=== PATIENT | male | born 1975 | race Asian ===

== ENCOUNTER 2018-10-08 06:31 | Inpatient (IN) | payer OTHER ==
--- NOTE | 2018-10-08 07:05 | ED ---
HPI Chest Pain - HPI Summary HPI Summary: Patient here with right-sided chest pain, side pain and back pain which started late last evening. He reports he developed a subjective fever after showering and when getting into bed. Around this time at 2200 he noticed pain starting to set him here. Worse with rotational movements and deep breath. He has not tried anything for pain however reports lying flat without moving was tolerable when he was able to sleep for 5 hours. Upon waking, pain was still here and so he is here today to be evaluated. Reports a mild cough over the past couple of days but denies hemoptysis or production. Denies melany shortness of breath, simply reports pain with deep inspiration in this area. Denies chills, headache , neck pain or stiffness, URI symptoms, shortness of breath, abdominal pain, nausea, vomiting, diarrhea, external pain/swelling/weakness as well as symptoms. Also denies smoking, use of hormones, recent trauma, history of bleeding or clotting disorders, history of cancer. He did travel to [place] from 09/07-09/24. Reports a mild cough while there from poor air quality- took amoxicillin 2 x day for 1 week and seemed to get better. Unsure of strength. Also admits he's had symptoms like this in the past most recently was in July 2018. These symptoms presented after lifting something heavy. He reports with rest, this improved after day or 2. Another time this occurred was when he was in [place] and received a massage. He developed the symptoms shortly after the massage. Again, symptoms resolved with rest. Pain 1-2 out of 10 at its best and is comfortable position of lying without deep breathing. Pain goes up to an 8 out of 10 with torso movements and deep breath. No known h/o PNA, TB or PE. - History of Current Complaint Chief Complaint: EDChestWallPain Time Seen by Provider: 10/08/18 06:38 Hx Obtained From: Patient Pain Intensity: 5 - Allergy/Home Medications Allergies/Adverse Reactions: Allergies Allergy/AdvReac Type Severity Reaction Status Date / Time No Known Allergies Allergy Verified 10/08/18 06:50 Home Medications: Home Medications NK [No Home Medications Reported] 10/08/18 [History Confirmed 10/08/18] PMH/Surg Hx/FS Hx/Imm Hx Previously Healthy: Yes Endocrine/Hematology History: Denies: Hx Anticoagulant Therapy, Hx Blood Disorders, Hx Diabetes, Hx Systemic Lupus Erythematosus, Hx Thyroid Disease, Hx Anemia, Hx Unexplained Bleeding, Autoimmune Disease Cardiovascular History: Denies: Hx Aneurysm, Hx Atrial Fibrillation, Hx Congenital Heart Disease, Hx Congestive Heart Failure, Hx Coronary Artery Disease, Hx Deep Vein Thrombosis, Hx Hypercholesterolemia, Hx Hypertension, Hx Myocardial Infarction, Hx Peripheral Vascular Disease, Hx Syncope, Hx Valvular Heart Disease Respiratory History: Denies: Hx Asthma, Hx Chronic Obstructive Pulmonary Disease (COPD), Hx Pneumonia, Hx Pulmonary Embolism GI History: Denies: Hx Cirrhosis, Hx Crohn's Disease, Hx Diverticulosis, Hx Gall Bladder Disease, Hx Gastroesophageal Reflux Disease, Hx Gastrointestinal Bleed, Hx Hiatal Hernia, Hx Irritable Bowel, Hx Obstructive Bowel, Hx Ulcer History: Denies: Hx Kidney Infection, Hx Kidney Stones - Immunization History Immunizations Up to Date: Yes - except influenza Infectious Disease History: No Infectious Disease History: Denies: Hx Tuberculosis, Traveled Outside the [place] in Last 30 Days - Family History Known Family History: Positive: None - Social History Occupation: Employed Full-time - researcher (physics) Lives: With Family - , child Alcohol Use: None Hx Substance Use: No Substance Use Type: Reports: None Hx Tobacco Use: No Smoking Status (MU): Never Smoked Tobacco Review of Systems Positive: Fever - subjective last night. Negative: Fatigue Eyes: Negative ENT: Negative Positive: Chest Pain - Rt side - lower, anterior and midaxilary into posterior lower Positive: Cough - mild - no hemoptysis. Negative: Shortness Of Breath - pain w / deep breath Gastrointestinal: Negative Negative: Abdominal Pain, Vomiting, Diarrhea, Nausea Genitourinary: Negative Negative: burning, dysuria, discharge, frequency, flank pain, hematuria, incontinence, pain, urgency Musculoskeletal: Other - Rt side rib pain Skin: Negative Neurological: Negative Psychological: Normal All Other Systems Reviewed And Are Negative: Yes Physical Exam Triage Information Reviewed: Yes Vital Signs On Initial Exam: Initial Vitals Temp Pulse Resp BP Pulse Ox 98.1 F 94 18 144/90 98 10/08/18 06:33 10/08/18 06:33 10/08/18 06:33 10/08/18 06:33 10/08/18 06:33 Vital Signs Reviewed: Yes Appearance: Positive: Well-Appearing, No Pain Distress - at rest - pain w/ deep breath, Well-Nourished Skin: Positive: Warm, Skin Color Reflects Adequate Perfusion, Dry - no erythema , no ecchymosis, no lesions over affected area Head/Face: Positive: Normal Head/Face Inspection Eyes: Positive: Normal, EOMI, Conjunctiva Clear - anicteric sclera ENT: Positive: Normal ENT inspection, Hearing grossly normal, Pharynx normal - mucosa moist Neck: Positive: Supple, Nontender Respiratory/Lung Sounds: Positive: Clear to Auscultation, Breath Sounds Present , Decreased Breath Sounds - possibly on Rt posterior lower chest however pt refrains from deep breath here d/t pain. Negative: Rales, Rhonchi, Subcutaneous Emphysema, Stridor, Tracheal Deviation, Wheezes, Unable to speak in full sentences, Fatigue Cardiovascular: Positive: Normal, RRR, Pulses are Symmetrical in both Upper and Lower Extremities, S1, S2. Negative: Murmur, Rub, Leg Edema Left, Leg Edema Right - (-) Silvia's B/L Abdomen Description: Positive: Nontender, No Organomegaly, Soft Bowel Sounds: Positive: Present Musculoskeletal: Positive: Normal, Strength/ROM Intact Neurological: Positive: Normal, Sensory/Motor Intact, Alert, Oriented to Person Place, Time, CN Intact II-III Psychiatric: Positive: Normal Diagnostics - Vital Signs Vital Signs Temp Pulse Resp BP Pulse Ox 10/08/18 06:33 98.1 F 94 18 144/90 98 - Laboratory Result Diagrams: 10/08/18 07:27 10/08/18 07:27 Lab Statement: Any lab studies that have been ordered have been reviewed, and results considered in the medical decision making process. Chest Pain Course/Dx - Course Course Of Treatment: Offered pain medications however he declines taking anything that may cause drowsiness - he is comfortable to wait until tests return but will call nurse if pain worsens. ECG: NSR, 84 bpm, possible LVH, ST sloping in V2, V3 - early repolarization. No previous for comparison. CXR: Rt chest opacities - pleural effusion. Labs: CRP 67; otherwise normal lactic, WBC. D-dimer elevated (600's) prior to CXR read - CTA ordered - no PE but gives more detail about Rt plueral effusion stating partially loculated with compression atelectasis of Rt LL. Discussed w/ Dr. Blackman who will perform thoracocentesis later today. Will admit to hospital in the meantime. Spoke w/ Dr. Beyer who agrees w/ plan. Admitted at 11:00am in stable condition. - Diagnoses Provider Diagnoses: Pleural effusion, right Discharge - Sign-Out/Discharge Documenting (check all that apply): Patient Departure - Discharge Plan Condition: Stable Disposition: ADMITTED TO [facility] - Billing Disposition and Condition Condition: STABLE Disposition: Admitted to [facility]
[2018-10-08 07:40] LABS: ABS Basophils 0 10^3/ul (0-0.2); ABS Eosinophils 0.2 10^3/ul (0-0.6); ABS Monocytes 0.9 10^3/ul (0-0.8); ABS Neutrophils 7.4 10^3/ul (1.5-7.7); ABS Nucleated RBC 0 10^3/ul; Eosinophil % 1.6 % (0-6); Hematocrit 41 % (42-52); Hemoglobin 13.8 g/dl (14.0-18.0); Lymphocyte % 10.6 % (25-47); Mean Corpuscular HGB Conc 34 g/dl (31-36); Mean Corpuscular Hemoglobin 27 pg (27-31); Mean Corpuscular Volume 80 fL (80-94); Mean Platelet Volume 7.9 fL (7.4-10.4); Nucleated Red Blood Cells % 0; Platelet Count 220 10^3/ul (150-450); Red Cell Distribution Width 13 % (10.5-15); White Blood Count 9.6 10^3/ul (3.5-10.8)
[2018-10-08 07:49] LABS: INR 1.04 (0.77-1.02)
[2018-10-08] MEDS ORDERED: Iohexol 350* (CONTRAST) 500 ML MDV IV ONE (08:08)
[2018-10-08] MEDS ORDERED: Levofloxacin 750 MG IVPREMIX(* 750 MG/150 ML BAG IVPB ONE (10:26)
[2018-10-08 10:38] LABS: Urine Appearance Clear; Urine Blood 1+ (Negative); Urine Color Yellow; Urine Ketones Negative (Negative); Urine Protein Negative (Negative); Urine Red Blood Cell Trace(0-2/hpf) (Absent); Urine Specific Gravity 1.012 (1.010-1.030); Urine Urobilinogen Negative (Negative); Urine White Blood Cell Trace(0-5/hpf) (Absent)
[2018-10-08] MEDS ORDERED: Ondansetron INJ* 2 MG/ML VIAL IV PRN (11:19)
[2018-10-08] MEDS ORDERED: NS 0.9% 1000 ML* 1,000 ML IV SCH (11:30)
[2018-10-08] MEDS: Acetaminophen TAB* 325 MG PO PRN (13:06)
--- NOTE | 2018-10-08 15:52 | HP ---
AMENDED REPORT NOW INCLUDES DESIGNATED COSIGNER CC: Dr. Alejandro Mathews; Dr. Cat; Dr. Blackman * HISTORY AND PHYSICAL: DATE OF ADMISSION: 10/08/18 PRIMARY CARE PROVIDER: Dr. Alejandro Mathews. ATTENDING PHYSICIAN WHILE IN THE HOSPITAL: Magalys Batres MD * (report dictated by Jerzy Stanton NP). CONSULTING INFECTIOUS DISEASE SPECIALIST: Dr. Cat. CONSULTING HEALTH OUTCOMES LIAISON: Dr. Blackman. CHIEF COMPLAINT: 1. Chest pain. 2. Cough. 3. Fatigue. HISTORY OF PRESENT ILLNESS: Mr. Jhaveri is a 43-year-old male patient who really carries a history only of hypertension and he is just doing lifestyle modifications for that at the moment. He says that recently he has noticed 3 distinct episodes starting in the end of July where he has had right-sided chest pain associated with fatigue. The first time it happened he thought it was related to the fact that he was moving and lifting stone for a patio setup, he lay down, it went away the next day and he felt fine. Next time it happened when he was in [place] from 09/07/18 through 09/23/18. Few days while getting there, he had a 2-day episode where he was having this right-sided sharp chest pain and along the right upper quadrant. He says the pain lasted intermittently for a couple days, worse with taking a deep breath, he felt better if he lay down and he felt fatigued. He did have a cough at that point, but it was nonproductive. He says when he got back to the [facility], he felt this discomfort again and he started taking amoxicillin for a week. It helped for a little bit, but then once he stopped taking the amoxicillin, the pain came back over the last 2 to 3 days this week and he described it as a sharp pain, worse with taking a deep breath. He felt short of breath because he cannot take a deep breath and he described again the pain in the lower ribs and the upper right quadrant, worse with position and he says it was just getting worse. He felt chilled and feverish last night. He denied any significant weight changes. No night sweats. No hemoptysis. He says he has been coughing, but he is not really bringing up anything. He was concerned because the symptoms were not getting any better and he came into the ED today. There has been no history given of TB or history of sick contacts that he is aware of, but again he was in [place] recently and he does work up at [employer]. He says that his other family members have not been ill. He decided to come into the ER. He was evaluated. He was ultimately found to have a loculated pleural effusion in his right base. We were asked to evaluate for admission. PAST MEDICAL HISTORY: Significant for hypertension. PAST SURGICAL HISTORY: Denied. HOME MEDICATIONS: Include none. ALLERGIES TO MEDICATIONS: Include no known drug allergies. FAMILY HISTORY: He says his mom is healthy. Father did have a history of a stroke. SOCIAL HISTORY: He is a nonsmoker. He does not use illicit drugs. He does not drink alcohol. Surrogate decision maker is his . He works at [employer]. REVIEW OF SYSTEMS: There is no documented fever, but he did admit to chills last night. Denies any significant weight change. There is no double vision. There is no ear discharge. He denies having any rhinorrhea. There was no sore throat. No thyroid enlargement. Does admit to having pain in his chest with a deep breath, sharp stabbing on the right side and also worse with position. There was chest pain per my HPI. There was no nausea, no vomiting. No dysuria. There was no frequency. No seizure, no loss of consciousness. No pruritus and no skin ulcerations. Review of 14 systems was completed, all others negative. PHYSICAL EXAMINATION GENERAL: At this time, Mr. Jhaveri is a 43-year-old male patient. He is sitting in the ED stretcher. He does not appear to be in any acute distress. He appears to be well nourished. He appears to be well developed. VITAL SIGNS: Blood pressure 135/94 with a pulse of 93, respirations 16, O2 sat 97%, temperature 98.1. HEENT: Head: Atraumatic and normocephalic. Eyes: EOMs intact. Sclerae anicteric and not pale. Throat: Oral mucosa appears to be moist. No oropharyngeal erythema. NECK: Supple. LUNGS: He was diminished in the right base. He had equal diaphragmatic expansion. HEART: Sounds S1, S2. He had a regular rate and rhythm. No murmurs, rubs, or gallops. ABDOMEN: Soft. It was flat, nontender. Bowel sounds were present. EXTREMITIES: Pulses were 2+ throughout. He is moving all 4 extremities with 5/ 5 strength. NEUROLOGIC: He is awake. He is alert. He is oriented x3. He had no gross focal deficits. SKIN: Intact. DIAGNOSTIC STUDIES/LAB DATA: Labs today did reveal a WBC of 9.6, RBC of 5.12, hemoglobin of 13.8, hematocrit of 41, platelet count of 220. INR was 1.04, PTT of 30.8, D-dimer of 602. His sodium was 136, potassium was 3.9, chloride of 103 , bicarb 27, BUN 12, creatinine of 0.82, glucose of 112, lactic 0.7. His calcium was 9, mag 2.2. Total bili 1.4, AST 13, ALT 15, alk phos 84. Troponin 0. CRP of 67. BNP of 9. Albumin of 4.1. TSH was normal. Urine showed 1+ blood. Serology was negative for flu. He had an EKG obtained today, which shows a normal sinus rhythm, rate of 84. He does have LVH, but no ST elevation. He had inverted T-wave in lead III and normal axis. He did appear to have J-point elevation in V2 and V3. Chest x-ray obtained today. It does show pleural effusion noted with atelectasis to the right lower lobe. Radiology read this as right pleural effusion with greater right lower lung consolidation, recommend followup until resolution to exclude underlying pulmonary parenchymal pathology. CTA chest showed no pulmonary arterial filling defect to suggest PE, right pleural effusion that appears partially loculated with compressive atelectasis of the right lower lobe. Old medical records were reviewed. ASSESSMENT AND PLAN: Mr. Jhaveri is a 43-year-old male patient coming into the ER today with complaints of chest pain and now having a cough, possible chills, on evaluation was found to have a pleural effusion. He will be admitted under observation status for: 1. Pleural effusion, etiology of which is unclear. It certainly could be infectious with his recent travel that certainly broadens the differential. I do think we should get in touch with Dr. Cat. I have a call placed out to him. Holding on antibiotics at the moment as he does appear to be hemodynamically stable. I would like to good cultures. Dr. Blackman has been contacted already by the ED for a thoracentesis today, which we will send off for culture, Gram stain and we also should send for cytology when it is sent and we will await the cell count to determine initiation and continuation of antibiotics. At this point, we will send off for body fluid, LDH, protein, glucose, cell counts, and cultures. I did send blood cultures. We will try to get sputum culture. I sent Strep pneumo antigen and Legionella antigen. Flu was negative. I also will send HIV testing and I did send off an LDH as well and we will continue to follow. 2. Hypertension. Blood pressure is stable here. We will monitor. 3. DVT prophylaxis: He will be placed on SCDs. 4. Code status: Full code. 5. Fluids, electrolytes, and nutrition: He can have a regular diet. TIME SPENT: Time spent on the admission was 60 minutes, greater than half of the time was spent [id number] with the patient obtaining my history and physical, other half of the time was spent going over the plan of care with the patient and implementing plan of care. I did discuss the plan of care with my attending, Dr. Batres; she is in agreement. JERZY STANTON, GIOVANNA [id number]/[facility] #: [id number] JESSIE
--- NOTE | 2018-10-08 20:41 | CONS ---
PULMONARY CONSULTATION REPORT: DATE OF CONSULT: 10/08/18 CONSULTATION REQUESTED BY: Jerzy Stanton NP REASON FOR CONSULT: Evaluation of pleural effusion. HISTORY OF PRESENT ILLNESS: The patient is a 43-year-old male with history of hypertension, on dietary and lifestyle modifications. The patient presents to the emergency room for evaluation of chest pain. The patient reports 3 episodes of chest pain that happened on different occasions. First episode happened in July when he had sudden onset of chest pain, sharp in nature, associated with fatigue. The patient denied significant shortness of breath. The patient attributed it to strenuous activity as he was lifting patio stones. Pain resolved eventually. Second episode happened when the patient was visiting [place]. He was in [place] from 09/07/18 to 09/23/18. He has noticed 2 days of right-sided chest pain along with right upper quadrant pain, worsened with a deep breath and relieved by lying down and taking rest. He also had dry cough at that time. The patient denies fevers or chills. The patient reports that usually when he goes back to [place] he gains weight; however, at this time he did not gain weight, at the same time denies any weight loss recently. The patient returned back to [facility] without any issues. However, stopped taking the amoxicillin that was prescribed to him when he was in [place]. The patient reports that over the past 2 to 3 days he has been having the sharp pain on the right side that is worse with deep breathing. He denies cough or sputum production. Denies fevers. Reports chills for the past couple of days. Denies night sweats. Denies hemoptysis. Denies known history of tuberculosis or sick contacts with TB. No known sick contacts recently. No other family members with similar complaints. Further evaluation in the emergency room included chest x-ray and CT scan of the chest. I have personally reviewed chest x-ray and CTA of the chest. Chest x-ray showed evidence of airspace opacity on the right side with right pleural effusion with underlying consolidation. CTA of the chest was also personally reviewed by me and with the patient - the patient noted to have no evidence of filling defects in pulmonary arteries. He was noted to have partially loculated right pleural effusion with compressive atelectasis. No significant mediastinal or hilar adenopathy was noted. No obvious discrete masses were noted. Pulmonary consultation was requested for evaluation of loculated appearing pleural effusion. The patient was seen and examined at bedside. The patient is not in any distress at this time. He reports difficulty taking deep breath. He was found to have low-grade fever at 100.1 here. PAST MEDICAL HISTORY: Hypertension, being treated with lifestyle modification. PAST SURGICAL HISTORY: None. MEDICATIONS AT HOME: The patient is not on any medications. ALLERGIES: No known drug allergies. FAMILY HISTORY: History of stroke in his father. SOCIAL HISTORY: Nonsmoker. No illicit drug use or alcohol abuse. He works at [employer]. REVIEW OF SYSTEMS: All 14 systems reviewed and as per HPI. PHYSICAL EXAM: The patient is sitting up in bed, in no apparent distress. Reports discomfort with only taking deep breath. Vital Signs: Temperature 100.1, pulse 119 beats per minute, respiratory rate 25 per minute, O2 sat 96% on room air with a blood pressure of 136/79 on admission. HEENT: Pupils equal , reactive to light. Mucous membranes moist. No accessory muscle use. Lungs: Diminished air entry at right base. No wheezing. Cardiovascular: S1, S2 present, regular. Abdomen: Soft, nontender, nondistended. Bowel sounds present. Extremities: Normal range of motion. No edema. Skin: No rash. Neuro: Alert, awake. No focal deficits. DIAGNOSTIC STUDIES/LAB DATA: WBC count 9.6, hemoglobin 13.8, hematocrit 41, platelet count 220,000. Sodium 136, potassium 3.9, chloride 103, bicarb 27, BUN 12, creatinine 0.82. Lactic acid within normal limits. T bili is slightly elevated at 1.40. LDH low. CRP elevated at 67. BNP within normal limits. TSH within normal limits. Chest x-ray and CT scan of the chest as described above in HPI. Urine Legionella antigen negative. Negative Strep pneumo antigen. Influenza A and B negative. IMPRESSION AND RECOMMENDATIONS: 43-year-old male who presents with chest pain, found to have loculated right pleural effusion. The patient with subjective fever and chills for 1 to 2 days. Symptoms consistent with parapneumonic effusion/complicated pleural effusion. I have performed bedside ultrasound to evaluate the effusion further. He does have small to moderate amounts of loculated right pleural effusion with complexities. I have performed bedside ultrasound-guided thoracentesis along the right side into one of those bigger pockets and drained 450 mL of dark turbid fluid. Fluid was sent into the lab for evaluation. Significant amount of white cells along with neutrophilia was seen. Rest of the pleural fluid studies are pending. Surgery consultation was requested given loculated pleural effusion to assess need for chest tube placement. The patient started on Levaquin.Infectious Disease consultation was also requested to help assist with optimal antibiotic choice. Will await pleural fluid results. If found to have evidence of empyema, might need either drainage of isolated locules or might need chest tube placement with administration of tPA. The patient is stable, not in any distress. Thank you for allowing me to participate in the care of your patient. Will follow up with you. [id number]/[facility] #: [id number] JESSIE
--- NOTE | 2018-10-09 03:58 | PRO ---
THORACENTESIS REPORT: DATE OF PROCEDURE: 10/08/18 PROCEDURE PERFORMED: Ultrasound-guided thoracentesis on the right side. PRE-PROCEDURAL DIAGNOSIS: Loculated right pleural effusion. POST-PROCEDURAL DIAGNOSIS: Loculated right pleural effusion, concern for empyema. ANESTHESIA: Local anesthesia with 1% lidocaine. DESCRIPTION OF PROCEDURE: Informed consent was obtained from the patient prior to the procedure after all the risks and benefits were thoroughly explained. The patient admitted for evaluation of loculated right pleural effusion. Appropriate time-out was performed and agreed by attending staff. A portable ultrasound was utilized at bedside to localize loculated and complex-appearing right pleural effusion. Strict aseptic and barrier precautions were followed. The patient was sitting up and leaning forward during the procedure. CareFusion 8-Macedonian thoracentesis catheter was utilized for the procedure. Area was cleaned with chlorhexidine. 1% lidocaine was instilled subcutaneously intradermally down into the pleural space taking precautions. #11 scalpel blade was used to make stab incision. A CareFusion 8-Macedonian thoracentesis catheter was then inserted under manual suction taking precautions. Catheter was left in place and needle was removed. 450 mL of dark yellow flui, turbid appearing was removed under manual suction. No further fluid was able to be aspirated and catheter was removed. The patient tolerated the procedure well. Postprocedural chest x-ray was ordered and is pending at the time of dictation. Fluid was sent into the lab for hematological, cytological, and biochemical examination. [id number]/[facility] #: [id number] MTDD
[2018-10-09] MEDS: Acetaminophen TAB* 325 MG PO PRN ×2 (04:08→15:57)
[2018-10-09 06:03] LABS: ABS Basophils 0 10^3/ul (0-0.2); ABS Eosinophils 0.2 10^3/ul (0-0.6); ABS Neutrophils 8.5 10^3/ul (1.5-7.7); ABS Nucleated RBC 0 10^3/ul; Eosinophil % 1.5 % (0-6); Hematocrit 41 % (42-52); Hemoglobin 13.8 g/dl (14.0-18.0); Lymphocyte % 9.6 % (25-47); Mean Corpuscular HGB Conc 34 g/dl (31-36); Mean Corpuscular Hemoglobin 27 pg (27-31); Mean Corpuscular Volume 81 fL (80-94); Nucleated Red Blood Cells % 0; Platelet Count 212 10^3/ul (150-450); Red Blood Count 5.09 10^6/ul (4.00-5.40); Red Cell Distribution Width 13 % (10.5-15); White Blood Count 10.7 10^3/ul (3.5-10.8)
[2018-10-09 06:09] LABS: INR 1.13 (0.77-1.02)
[2018-10-09 06:18] LABS: EGFR Non-African American 97.5 (>60)
[2018-10-09] MEDS ORDERED: Levofloxacin 750 MG IVPREMIX(* 750 MG/150 ML BAG IVPB SCH (09:00)
--- NOTE | 2018-10-09 13:47 | PN ---
Progress Note - Progress Note Date of Service: 10/09/18 - Pul f/u note Note: Pt seen and examined. Complete note in separate progress note
--- NOTE | 2018-10-09 13:50 | PN ---
Progress Note - Progress Note Date of Service: 10/09/18 - Pulm f/u note Note: Pt seen and examined at bedside. Pt reports soreness atsite of thoracentesis yesterday. Denies significant chest pain or SOB, felt better after thoracentesis , had low grade fever. Was placed on resp isolation Active Medications Generic Name Dose Route Start Last Admin Trade Name Freq PRN Reason Stop Dose Admin Acetaminophen 650 mg 10/08/18 11:19 10/09/18 04:08 Tylenol Tab* PO 650 mg Q4H PRN Administration FEVER/PAIN Sodium Chloride 1,000 mls @ 100 mls/hr 10/08/18 11:30 10/08/18 12:50 Ns 0.9% 1000 Ml* IV 100 mls/hr PER RATE SHELLY Administration Levofloxacin/Dextrose 750 mg in 150 mls @ 100 mls/hr 10/09/18 09:00 10/09/18 10:04 Levaquin 750 Mg Ivpremix(*) IVPB 100 mls/hr Q24H SHELLY Administration Ondansetron HCl 4 mg 10/08/18 11:19 Zofran Inj* IV Q6H PRN NAUSEA Tramadol HCl 50 mg 10/08/18 20:04 Ultram* PO Q8H PRN PAIN Vital Signs Temp Pulse Resp BP Pulse Ox 98.1 F 82 16 128/77 98 10/09/18 07:12 10/09/18 07:12 10/09/18 07:12 10/09/18 07:12 10/09/18 07:12 O/E: Pt in NAD HEENT: PERRLA, no JVD Lungs: Diminished at rt base CVS: S1, S2+ Abd: Soft, BS+ Ext: No edema Neuro: No focal deficits Skin: No rash Laboratory Results - last 24 hr 10/08/18 10/09/18 10/09/18 13:00 05:43 05:43 WBC 10.7 RBC 5.09 Hgb 13.8 L Hct 41 L MCV 81 MCH 27 MCHC 34 RDW 13 Plt Count 212 MPV 8.0 Neut % (Auto) 79.0 Lymph % (Auto) 9.6 L Eaton % (Auto) 9.5 H Eos % (Auto) 1.5 Baso % (Auto) 0.4 Absolute Neuts (auto) 8.5 H Absolute Lymphs (auto) 1.0 Absolute Monos (auto) 1.0 H Absolute Eos (auto) 0.2 Absolute Basos (auto) 0 Absolute Nucleated RBC 0 Nucleated RBC % 0 INR (Anticoag Therapy) 1.13 H Sodium Potassium Chloride Carbon Dioxide Anion Gap BUN Creatinine Est GFR ( Amer) Est GFR (Non-Af Amer) BUN/Creatinine Ratio Glucose Calcium Fluid Source Pleural fluid Fluid Volume 8 Fluid Color Maria Luisa Fluid Appearance Cloudy Fluid WBC 27144 Fluid RBC 91085 Fluid Tot Cell Count 100 Fluid Neutrophils 89 Fluid Lymphocytes 7 Fluid Monocytes 3 Fluid Eosinophils 1 Fluid Other Cells 4 Fluid Cell Count Rvw By 10/09/18 05:43 WBC RBC Hgb Hct MCV MCH MCHC RDW Plt Count MPV Neut % (Auto) Lymph % (Auto) Eaton % (Auto) Eos % (Auto) Baso % (Auto) Absolute Neuts (auto) Absolute Lymphs (auto) Absolute Monos (auto) Absolute Eos (auto) Absolute Basos (auto) Absolute Nucleated RBC Nucleated RBC % INR (Anticoag Therapy) Sodium 136 Potassium 3.7 Chloride 106 Carbon Dioxide 25 Anion Gap 5 BUN 11 Creatinine 0.86 Est GFR ( Amer) 118.0 Est GFR (Non-Af Amer) 97.5 BUN/Creatinine Ratio 12.8 Glucose 118 H Calcium 8.8 Fluid Source Fluid Volume Fluid Color Fluid Appearance Fluid WBC Fluid RBC Fluid Tot Cell Count Fluid Neutrophils Fluid Lymphocytes Fluid Monocytes Fluid Eosinophils Fluid Other Cells Fluid Cell Count Rvw By I/R: 43 y o m with no significant PMH a/w chest pain that happened at 3 different times since Sep, recently travelled to [place], had sx prior to travel also with no actual wt loss, decreased appetite Pt had CTA that showed loculated effusion, underwent thoracentesis with removal of 450ccof dark, turbid fluid Pt with increased WBC count, predominantly neutrophils, rest of studies are pending including pl fluid ADA Pt was placed in resp isolation Less likely to be TB given neutrophilic predominance, would be lymphocytic in TB c/w abx Will obtain U/S to evaluate for any further loculations If noted to have loculated fluid, will need IR for drainage Surgery was consulted yesterday, not enough fluid to safely place chest tube for tPA administration D/w above with pt in detail at bedside
[2018-10-09] MEDS ORDERED: NS 0.9% 1000 ML*IV.FLUID IV ONE (15:52)
--- NOTE | 2018-10-09 16:42 | CONS ---
CONSULTATION REPORT: DATE OF CONSULT: 10/09/18 REQUESTING PROVIDER: Jerzy Stanton NP. CONSULTING SERVICE: Infectious Disease. REASON FOR CONSULT: Pleural effusion. IMPRESSION: Right-sided pleuritic chest pain off and on for a couple of days in July, then a few days in August and then again more recently and a CT scan showing partially loculated right pleural effusion, treated with thoracentesis that showed 38,000 white cells, 90% neutrophils, Gram stain no organisms. He has no leukocytosis. He has no poor dentition. No recent pneumonia. The differential diagnosis includes a bacterial process including empyema versus given the fact that he grew up in [place], TB pleurisy. If it is tuberculosis, he has no parenchymal lesions on the CT scan and no casts, so I do not think he is contagious. RECOMMENDATION: We will continue Levaquin and for completeness sake, I will try to obtain sputum for acid-fast smear and culture as well as had an acid- fast culture of the pleura, which is of low yield and TB pleurisy. He has a QuantiFERON pending. Assuming all of the culture materials negative and the QuantiFERON is positive, we will likely empirically treat him for tuberculosis. HISTORY OF PRESENT ILLNESS: This is a 43-year-old man, raised in [place], works in [employer], in July developed right lower back and chest pain, which was worse with movement, it lasted about a night and came back a few days later for another day or 2. He thought maybe it was due to some heavy lifting he had done. Then, mid August, as he was travelling to [place], he developed worsening pain with some cough, occasional sputum production, chills that resolved while on his trip to [place], it started even before he left [place]. Then, over the last couple of days, he developed severe right chest pain, which progressed along with chills and sweats. His appetite had been good in the interim. He came to the hospital yesterday. White count was 9,000. His C-reactive protein was 70. He was treated with Levaquin. Pneumococcal and Legionella antigens were negative. CT scanning as above. Dr. Blackman obtained 450 cc of turbid fluid, results as above. His urinalysis unremarkable. Influenza PCR negative. He has had no skin testing for tuberculosis in the past that he knows of. He does not know if any relatives who had TB when he grew up in [place]. PAST MEDICAL HISTORY: None. MEDICATIONS: 1. Tylenol. 2. Levaquin 750 mg daily. 3. Tramadol. ALLERGIES: No known drug allergies. FAMILY HISTORY: No recurrent infections or TB. 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 No sick contacts. REVIEW OF SYSTEMS: All negative except as noted above in the history of present illness to a 14-point review. PHYSICAL EXAM: Vital Signs: Temperature 37, heart rate 80, respiratory rate 16 , blood pressure 130/77, oxygen saturation 98% on room air. In general, he is awake, not in distress. Neurologic: He is oriented x3. Follows all commands. HEENT: There is no conjunctival hemorrhage. Oropharynx without lesions. Neck is supple without mass. Heart is regular rate and rhythm without murmurs, rubs, or gallops. Lungs: Decreased breath sounds at the right base without wheeze or rale. Abdomen: Soft, nontender, nondistended. There are bowel sounds present. Lymph Nodes: There is no cervical, supraclavicular, inguinal, axillary or epitrochlear lymphadenopathy. Skin: There is no rash or splinter hemorrhage. Musculoskeletal: There is no spine tenderness to palpation. LABORATORY DATA: White blood cell count 10, hemoglobin 13, platelets 212. Creatinine 0.8. Please see impressions and recommendations as outlined above. Thanks for asking me to see Mr. Jhaveri in consultation. [id number]/[facility] #: [id number] [facility]TD[facility]
[2018-10-09] MEDS ORDERED: Lidocaine 1% INJ* 10 MG/ML 30 ML SDV ONE (16:48)
[2018-10-09] MEDS ORDERED: Morphine VIAL* 4 MG/ML VIAL (1 ml vial) IV ONE ×2 (17:38→17:52)
[2018-10-09] MEDS ORDERED: Vancomycin(*) 1,000 MG in NS 0.9% 250 ML* 250 ML IVPB ONE (18:22)
[2018-10-09] MEDS ORDERED: Piperacillin/Tazobac ADVAN(*) 3.375 GM in NS 0.9% 100 ML* 100 ML IVPB ONE (18:22)
[2018-10-09] MEDS ORDERED: Vancomycin per Pharmacy* NOTE FOLLOW UP PRN (18:31)
--- NOTE | 2018-10-09 18:59 | PN ---
Subjective Date of Service: 10/09/18 Interval History: Mr. Swan underwent thoracentesis last night and 450 cc turbid fluid were removed. This morning when I evaluated him, he was complaining of some soreness at the site of the thoracentesis. He was afebrile overnight but did spike a fever this afternoon. He otherwise has no complaints. Objective Active Medications: Acetaminophen (Tylenol Tab*) 650 mg PO Q4H PRN PRN Reason: FEVER/PAIN Last Admin: 10/09/18 15:57 Dose: 650 mg Alteplase, Recombinant 10 mg/ (Sodium Chloride) 50 mls @ 0 mls/hr INTRAPLEUR ONCE ONE; Protocol Stop: 10/10/18 07:01 Dornase Yoseph 5 mg/ Sodium (Chloride) 50 mls @ 0 mls/hr INTRAPLEUR ONCE ONE Stop: 10/10/18 07:01 Vancomycin HCl 1,000 mg/ (Sodium Chloride) 250 mls @ 166.667 mls/hr IVPB ONCE ONE Stop: 10/09/18 19:51 Ondansetron HCl (Zofran Inj*) 4 mg IV Q6H PRN PRN Reason: NAUSEA Pharmacy Consult (Zosyn Per Pharmacy*) 1 note FOLLOW UP .ZOSYN PER PHARMACY SHELLY Pharmacy Consult (Vancomycin Per Pharmacy*) 1 note FOLLOW UP . PRN PRN Reason: PER PROTOCOL Tramadol HCl (Ultram*) 50 mg PO Q8H PRN PRN Reason: PAIN Vital Signs - 8 hr 10/09/18 10/09/18 10/09/18 11:25 15:35 17:40 Temperature 99.8 F 102.4 F Pulse Rate 107 108 Respiratory 16 28 24 Rate Blood Pressure 129/77 131/81 (mmHg) O2 Sat by Pulse 98 96 Oximetry 10/09/18 18:46 Temperature Pulse Rate Respiratory 22 Rate Blood Pressure (mmHg) O2 Sat by Pulse Oximetry Oxygen Devices in Use Now: None Appearance: nontoxic appearing, working on his computer sitting up in bed Eyes: No Scleral Icterus Ears/Nose/Mouth/Throat: NL Teeth, Lips, Gums Respiratory: - - decreased breath sounds midway up right lung. puncture site with some bloody drainage on bandaid. Cardiovascular: NL Sounds; No Murmurs; No JVD, RRR Abdominal: NL Sounds; No Tenderness; No Distention Lymphatic: - - +anterior cervical and submandibular adenopathy Skin: No Rash or Ulcers Result Diagrams: 10/09/18 05:43 10/09/18 05:43 Microbiology and Other Data: Microbiology 10/08/18 12:40 Aerobic Blood Culture - Preliminary Blood Venous No Growth Day 1 Anaerobic Blood Culture - Preliminary No Growth Day 1 10/08/18 13:00 Gram Stain - Final Pleural Fluid Body Fluid Culture - Preliminary No Growth Day 1 10/08/18 10:25 Aerobic Blood Culture - Preliminary Blood Venous No Growth Day 1 Anaerobic Blood Culture - Preliminary No Growth Day 1 10/08/18 10:20 Urine Culture - Final Urine No Growth (<1,000 CFU/mL) Legionella Urinary Antigen - Final Negative Legionella Antigen 10/08/18 09:14 Streptococcus pneumoniae Ag Screen - Final Urine Negative S. pneumo Antigen 10/08/18 09:50 Influenza Types A,B Antigen - Final Nasal Specimen received for Influenza A/B Molecular testing Assess/Plan/Problems-Billing Assessment: This is a 43 year old man with history of hypertension who recently returned from a trip to [place] and presented with chest pain and was found to have a right sided pleural effusion. - Patient Problems (1) Pleural effusion Current Visit: Yes Status: Acute Code(s): J90 - PLEURAL EFFUSION, NOT ELSEWHERE CLASSIFIED SNOMED Code(s): 24626695 Comment: pleural fluid LDH and protein are not back yet, but his clinical scenario suggest an exudative effusion, and most likely infectious I broadned his antibiotics this afternoon when he became febrile, tachycardic, and tachypneic pleural fluid culture, gram stain, and acid fast stain are pending now neutrophilic predominance suggests against tb Dr. Blackman discussed case with surgery regarding need for chest tube--they will evaluate (2) Sepsis Current Visit: Yes Status: Acute Comment: with pulmonary source lactic acid okay today 30cc/kg bolus given and abx broadened (3) HTN (hypertension) Current Visit: Yes Status: Acute Code(s): I10 - ESSENTIAL (PRIMARY) HYPERTENSION SNOMED Code(s): 56650712 Comment: antihypertensives on hold in setting of sepsis
[2018-10-09] MEDS ORDERED: Vancomycin(*) 1,000 MG in NS 0.9% 250 ML* 250 ML IVPB SCH (19:00)
[2018-10-09] MEDS ORDERED: Zosyn per Pharmacy* NOTE FOLLOW UP SCH (19:00)
[2018-10-09] MEDS: traMADol TAB* 50 MG PO PRN (20:53)
[2018-10-10] MEDS: ZOSYN 3.375 GM Q8H per EXTENDED INFUSION IVPB SCH ×6 (00:20→17:11)
[2018-10-10] MEDS: Acetaminophen TAB* 325 MG PO PRN ×2 (00:44→14:12)
[2018-10-10] MEDS ORDERED: Vancomycin(*) 1,000 MG in NS 0.9% 250 ML* 250 ML IVPB SCH (05:00)
[2018-10-10 06:37] LABS: ABS Basophils 0 10^3/ul (0-0.2); ABS Eosinophils 0.3 10^3/ul (0-0.6); ABS Lymphocytes 1.3 10^3/ul (1.0-4.8); ABS Monocytes 0.8 10^3/ul (0-0.8); ABS Neutrophils 5.1 10^3/ul (1.5-7.7); ABS Nucleated RBC 0 10^3/ul; Eosinophil % 3.9 % (0-6); Hematocrit 37 % (42-52); Hemoglobin 12.3 g/dl (14.0-18.0); Lymphocyte % 16.7 % (25-47); Mean Corpuscular HGB Conc 34 g/dl (31-36); Mean Corpuscular Hemoglobin 27 pg (27-31); Mean Corpuscular Volume 81 fL (80-94); Mean Platelet Volume 8.1 fL (7.4-10.4); Nucleated Red Blood Cells % 0; Platelet Count 192 10^3/ul (150-450); Red Blood Count 4.52 10^6/ul (4.00-5.40); Red Cell Distribution Width 13 % (10.5-15); White Blood Count 7.5 10^3/ul (3.5-10.8)
[2018-10-10 06:51] LABS: EGFR Non-African American 93.7 (>60)
[2018-10-10] MEDS ORDERED: DORNASE ALFA 1 mg/ml(NF) 5 MG in NS 0.9% 50 ML* 45 ML INTRAPLEUR ONE (07:00)
[2018-10-10] MEDS ORDERED: Alteplase (CATHFLO)* 10 MG in NS 0.9% 50 ML* 40 ML INTRAPLEUR ONE (07:00)
--- NOTE | 2018-10-10 07:11 | OP ---
CC: Dr. Blackman; Dr. Roc Mathews * DATE OF OPERATION: 10/09/18 - ROOM #422 DATE OF : 77. SURGEON: Dustin Cox M.D. PRE-OP DIAGNOSIS: Loculated right pleural effusion. POST-OP DIAGNOSIS: Loculated right pleural effusion. OPERATIVE PROCEDURE: Right thoracostomy tube. INDICATIONS: The patient was seen by Dr. Blackman. He has had imaging, which appears to show loculated effusion. She was able to do a thoracentesis, but was unable to evacuate it all, and she has asked me to see him for any consideration for a right tube thoracostomy. I have reviewed his history and reviewed his images, and I agreed that he appears to have a loculated effusion. I discussed with him at some length the nature of the procedure, the rationale, the risks, the alternatives, and I think this is the best approach to the problem, and he understands all that, and is agreeable to a right tube thoracostomy. DESCRIPTION OF PROCEDURE: Therefore, the patient is lying in bed inclined towards his left and the right lateral chest was prepped with antiseptic, draped in a sterile fashion. Sterile gown and gloves are utilized, and approximately the 8th interspace was identified. Local anesthetic was administered at the skin and down into the intercostal muscle and approximately 2 cm incision is created, and dissection carried down to the intercostal muscle , which was spread gently with a clamp until the pleural space is entered. There is low coates of air and a little fluid forthcoming. A 28-[place] Ze[place]ander chest tube is slid into the site and some pink thin fluid is evacuated into a trap and sent for Gram stain and culture. The 0 silk suture is used to secure the tube. Bulky gauze dressing is placed and the tube was hooked to a Pleur-Evac. He tolerated this well and a chest x-ray was ordered. [id number]/[facility] #: [id number] [facility]
[2018-10-10] MEDS: traMADol TAB* 50 MG PO PRN (08:15)
--- NOTE | 2018-10-10 10:21 | PN ---
Progress Note - Progress Note Date of Service: 10/10/18 SOAP: Subjective: CC: chest pain HPI: 43 year old man with 2 months on and off right chest pain, initial cough which is gone. Right sided pleural effusion s/p thoracentesis and chest tube. Pain stable. No fever, chills, sweats. Appetite ok. Objective: Vital Signs Temp 36.8 C 10/10/18 06:24 Pulse 74 10/10/18 06:24 Resp 20 10/10/18 08:49 BP 120/76 10/10/18 06:24 Pulse Ox 97 10/10/18 06:24 Intake & Output 10/09/18 10/10/18 10/10/18 18:59 06:59 18:59 Intake Total 590 3033 410 Output Total 0 Balance 590 3033 410 Intake: IV Fluids 2432 38 NS (0.9%) 2432 38 IVPB 110 401 372 NS (0.9%) 401 372 Oral 480 200 Output: Urine 0 Other: Estimated Void Large Date of Last Bowel 10/08/18 Movement # Bowel Movements 0 0 # Voids 1 Gen:awake, no distress HEENT: no thrush Heart:RRR no murmur Lungs:decr BS R base; R chest tube Skin: no rash Abd: +BS NTND soft MSK: no spine tenderness Laboratory Results - last 24 hr 10/08/18 10/08/18 10/08/18 12:40 13:00 13:00 WBC RBC Hgb Hct MCV MCH MCHC RDW Plt Count MPV Neut % (Auto) Lymph % (Auto) Bledsoe % (Auto) Eos % (Auto) Baso % (Auto) Absolute Neuts (auto) Absolute Lymphs (auto) Absolute Monos (auto) Absolute Eos (auto) Absolute Basos (auto) Absolute Nucleated RBC Nucleated RBC % Sodium Potassium Chloride Carbon Dioxide Anion Gap BUN Creatinine Est GFR ( Amer) Est GFR (Non-Af Amer) BUN/Creatinine Ratio Glucose Lactic Acid Calcium Fluid Source Pleural Fluid Cell Count Rvw By Fluid Glucose 102 Fluid Total Protein HIV 1&2 Antibody Nonreactive 10/08/18 10/08/18 10/09/18 13:00 13:00 16:23 WBC RBC Hgb Hct MCV MCH MCHC RDW Plt Count MPV Neut % (Auto) Lymph % (Auto) Bledsoe % (Auto) Eos % (Auto) Baso % (Auto) Absolute Neuts (auto) Absolute Lymphs (auto) Absolute Monos (auto) Absolute Eos (auto) Absolute Basos (auto) Absolute Nucleated RBC Nucleated RBC % Sodium Potassium Chloride Carbon Dioxide Anion Gap BUN Creatinine Est GFR ( Amer) Est GFR (Non-Af Amer) BUN/Creatinine Ratio Glucose Lactic Acid 0.9 Calcium Fluid Source Pleural Pleural Fluid Cell Count Rvw By Fluid Glucose 109 Fluid Total Protein 5.8 HIV 1&2 Antibody 10/09/18 10/10/18 10/10/18 20:30 00:19 06:05 WBC 7.5 RBC 4.52 Hgb 12.3 L Hct 37 L MCV 81 MCH 27 MCHC 34 RDW 13 Plt Count 192 MPV 8.1 Neut % (Auto) 67.8 Lymph % (Auto) 16.7 L Bledsoe % (Auto) 11.2 H Eos % (Auto) 3.9 Baso % (Auto) 0.4 Absolute Neuts (auto) 5.1 Absolute Lymphs (auto) 1.3 Absolute Monos (auto) 0.8 Absolute Eos (auto) 0.3 Absolute Basos (auto) 0 Absolute Nucleated RBC 0 Nucleated RBC % 0 Sodium Potassium Chloride Carbon Dioxide Anion Gap BUN Creatinine Est GFR ( Amer) Est GFR (Non-Af Amer) BUN/Creatinine Ratio Glucose Lactic Acid 0.9 0.8 Calcium Fluid Source Fluid Cell Count Rvw By Fluid Glucose Fluid Total Protein HIV 1&2 Antibody 10/10/18 06:05 WBC RBC Hgb Hct MCV MCH MCHC RDW Plt Count MPV Neut % (Auto) Lymph % (Auto) Bledsoe % (Auto) Eos % (Auto) Baso % (Auto) Absolute Neuts (auto) Absolute Lymphs (auto) Absolute Monos (auto) Absolute Eos (auto) Absolute Basos (auto) Absolute Nucleated RBC Nucleated RBC % Sodium 137 Potassium 3.8 Chloride 108 Carbon Dioxide 25 Anion Gap 4 BUN 10 Creatinine 0.89 Est GFR ( Amer) 113.4 Est GFR (Non-Af Amer) 93.7 BUN/Creatinine Ratio 11.2 Glucose 106 H Lactic Acid Calcium 8.3 L Fluid Source Fluid Cell Count Rvw By Fluid Glucose Fluid Total Protein HIV 1&2 Antibody Assessment: 1. Right pleural effusion differential diagnosis includes pleural TB (no cough, can't produce sputum, and minimal parenchymal change on CT so I think not contagious) vs typical respiratory/upper GI tract nicole empyema 2. mildly elevated CRP Plan: 1. try to induce sputa if not able can DC airborne precautions; IGRA pending, will place TST while waiting. Continue levaquin. Chest tube management per pulmonary and surgery. Assuming all cultures negative and positive TST or IGRA will treat emperically for TB.
[2018-10-10] MEDS ORDERED: Sodium Chloride(INHALANT)0.9%* 5 ML NEB.SOLN INH ONE (11:16)
[2018-10-10] MEDS: Docusate CAP* 100 MG PO PRN (11:52)
[2018-10-10] MEDS ORDERED: Levofloxacin 750 MG IVPREMIX(* 750 MG/150 ML BAG IVPB SCH (12:00)
[2018-10-10] MEDS ORDERED: PPD test dose* 5 TU/0.1 ML TEST (*USE PPD ORDER SET*) INTRADERM ONE (12:00)
--- NOTE | 2018-10-10 12:17 | PN ---
Progress Note - Progress Note Date of Service: 10/10/18 Note: Surgery Progress: S: some pain from chest tube. O: CT drainage light serosang; ~ 120 ml in Pleurevac A/P: s/p Right chest tube for loculated pleural effusion 1st dose of Dornase/Alteplase administered via chest tube; will clamp for 2 hr. Plan repeat q day x total of 3 doses. Discussed w/ Dr. Cox.
--- NOTE | 2018-10-10 14:20 | PN ---
Subjective Date of Service: 10/10/18 Interval History: Patient is feeling better today. Incisional an pleuritic pain with chest tube. Denies cough, hemoptysis, sputum production, CP, SOB, N/V, dysuria, abdominal pain, diarrhea, dysuria, or other pain. Patient unable to produce sputum sample. Family History: Unchanged from Admission Social History: Unchanged from Admission Past Medical History: Unchanged from Admission Objective Active Medications: Acetaminophen (Tylenol Tab*) 650 mg PO Q4H PRN PRN Reason: FEVER/PAIN Last Admin: 10/10/18 14:12 Dose: 650 mg Docusate Sodium (Colace Cap*) 200 mg PO DAILY PRN PRN Reason: CONSTIPATION Last Admin: 10/10/18 11:52 Dose: 200 mg Piperacillin Sod/Tazobactam (Sod 3.375 gm/ Sodium Chloride) 100 mls @ 25 mls/ hr IVPB Q8H [facility] Last Admin: 10/10/18 08:14 Dose: 25 mls/hr Levofloxacin/Dextrose (Levaquin 750 Mg Ivpremix(*)) 750 mg in 150 mls @ 100 mls /hr IVPB Q24H [facility] Last Admin: 10/10/18 12:48 Dose: 100 mls/hr Ondansetron HCl (Zofran Inj*) 4 mg IV Q6H PRN PRN Reason: NAUSEA Pharmacy Consult (Zosyn Per Pharmacy*) 1 note FOLLOW UP .ZOSYN PER PHARMACY [facility] Pharmacy Profile Note (Ppd Reading Note*) 1 note .SEE ORDER .PPD READING ONE Stop: 10/13/18 12:01 Tramadol HCl (Ultram*) 50 mg PO Q8H PRN PRN Reason: PAIN Last Admin: 10/10/18 08:15 Dose: 50 mg Vital Signs - 8 hr 10/10/18 10/10/18 10/10/18 06:24 08:15 08:49 Temperature 98.3 F Pulse Rate 74 Respiratory 22 20 20 Rate Blood Pressure 120/76 (mmHg) O2 Sat by Pulse 97 Oximetry 10/10/18 10/10/18 10:30 11:27 Temperature Pulse Rate 78 Respiratory 18 14 Rate Blood Pressure (mmHg) O2 Sat by Pulse 97 Oximetry Oxygen Devices in Use Now: None Appearance: Patient is a 43yo male who appears stated age and is sitting in the bed in NAD. Eyes: No Scleral Icterus, PERRLA Ears/Nose/Mouth/Throat: NL Teeth, Lips, Gums, Clear Oropharnyx, Mucous Membranes Moist Neck: NL Appearance and Movements; NL JVP, Trachea Midline Respiratory: Symmetrical Chest Expansion and Respiratory Effort, - - Diminished lung sounds in right lung, worst in lung base. Cardiovascular: NL Sounds; No Murmurs; No JVD, RRR, No Edema Abdominal: NL Sounds; No Tenderness; No Distention, No Hepatosplenomegaly Lymphatic: No Cervical Adenopathy Extremities: No Edema, No Clubbing, Cyanosis Skin: No Rash or Ulcers, No Nodules or Sclerosis Neurological: Alert and Oriented x 3, NL Sensation, NL Muscle Strength and Tone , - - CN II-XII intact. Result Diagrams: 10/10/18 06:05 10/10/18 06:05 Microbiology and Other Data: Microbiology 10/08/18 12:40 Aerobic Blood Culture - Preliminary Blood Venous No Growth Day 1 Anaerobic Blood Culture - Preliminary No Growth Day 1 10/08/18 13:00 Gram Stain - Final Pleural Fluid Body Fluid Culture - Preliminary No Growth Day 1 10/08/18 10:25 Aerobic Blood Culture - Preliminary Blood Venous No Growth Day 1 Anaerobic Blood Culture - Preliminary No Growth Day 1 10/08/18 10:20 Urine Culture - Final Urine No Growth (<1,000 CFU/mL) Legionella Urinary Antigen - Final Negative Legionella Antigen 10/08/18 09:14 Streptococcus pneumoniae Ag Screen - Final Urine Negative S. pneumo Antigen 10/08/18 09:50 Influenza Types A,B Antigen - Final Nasal Specimen received for Influenza A/B Molecular testing Assess/Plan/Problems-Billing Assessment: This is a 43 year old man with history of hypertension who recently returned from a trip to [place] and presented with chest pain and was found to have a right sided pleural effusion who is on IV antibiotics and has a chest tube placed for drainage. Patient is still being evaluated for possible tuberculosis. - Patient Problems (1) Pleural effusion Current Visit: Yes Status: Acute Code(s): J90 - PLEURAL EFFUSION, NOT ELSEWHERE CLASSIFIED SNOMED Code(s): 50201299 Comment: - Fluid LDH and Protein strongly positive for Exudative effusion\ - Pleural fluid culture pending, gram stain, and acid fast stain are negative - Neutrophilic predominance suggests against TB - Appreciate Pulmonology input - Chest tube placed by surgery and draining yellow fluid. Continue with TPA - IGRA and PPD placed to evaluate for TB. (2) Sepsis Current Visit: Yes Status: Acute Comment: - Resolved with bolus and broad coverage IV antibiotics. - Continue Zosyn. (3) HTN (hypertension) Current Visit: Yes Status: Acute Code(s): I10 - ESSENTIAL (PRIMARY) HYPERTENSION SNOMED Code(s): 26236813 Comment: - Diet controlled, normotensive at this time. (4) DVT prophylaxis Current Visit: Yes Status: Acute Code(s): PSQ0557 - SNOMED Code(s): 540497522 Comment: - Low Risk (5) Full code status Current Visit: Yes Status: Acute Code(s): Z78.9 - OTHER SPECIFIED HEALTH STATUS SNOMED Code(s): 519539345 Status and Disposition: Inpatient for chest tube, IV antibiotics and full diagnostic evaluation of pleural effusion.
[2018-10-10] MEDS ORDERED: NS 0.9% 1000 ML* 1,000 ML IV ONE (14:52)
[2018-10-10] MEDS: Morphine VIAL* 4 MG/ML VIAL (1 ml vial) IV PRN (15:01)
[2018-10-10 15:39] LABS: EGFR Non-African American 107.6 (>60)
[2018-10-10] MEDS ORDERED: Vancomycin Trough Check NOTE FOLLOW UP ONE (20:30)
[2018-10-11] MEDS: ZOSYN 3.375 GM Q8H per EXTENDED INFUSION IVPB SCH ×6 (00:43→16:08)
[2018-10-11] MEDS: traMADol TAB* 50 MG PO PRN (01:03)
[2018-10-11] MEDS: Morphine VIAL* 4 MG/ML VIAL (1 ml vial) IV PRN (05:29)
[2018-10-11 07:00] LABS: ABS Basophils 0 10^3/ul (0-0.2); ABS Eosinophils 0.3 10^3/ul (0-0.6); ABS Monocytes 0.7 10^3/ul (0-0.8); ABS Neutrophils 5.7 10^3/ul (1.5-7.7); ABS Nucleated RBC 0 10^3/ul; Eosinophil % 3.5 % (0-6); Hematocrit 40 % (42-52); Hemoglobin 13.3 g/dl (14.0-18.0); Lymphocyte % 13.4 % (25-47); Mean Corpuscular HGB Conc 34 g/dl (31-36); Mean Corpuscular Hemoglobin 27 pg (27-31); Mean Corpuscular Volume 81 fL (80-94); Mean Platelet Volume 7.9 fL (7.4-10.4); Nucleated Red Blood Cells % 0; Platelet Count 223 10^3/ul (150-450); Red Blood Count 4.92 10^6/ul (4.00-5.40); Red Cell Distribution Width 13 % (10.5-15); White Blood Count 7.7 10^3/ul (3.5-10.8)
[2018-10-11 07:15] LABS: EGFR Non-African American 86.9 (>60)
[2018-10-11] MEDS: Docusate CAP* 100 MG PO PRN (10:13)
[2018-10-11] MEDS: DORNASE ALFA 1 mg/ml(NF) 5 MG in NS 0.9% 50 ML* 45 ML INTRAPLEUR SCH (11:41)
[2018-10-11] MEDS: Alteplase (CATHFLO)* 10 MG in NS 0.9% 50 ML* 40 ML INTRAPLEUR SCH (11:41)
--- NOTE | 2018-10-11 14:01 | PN ---
Progress Note - Progress Note Date of Service: 10/11/18 Note: Surgery progress note S: Patient says he feels well. No new complaints. CXR yesterday showed no residual PTX on right. O: Chest tube in place, approximately 400-500 cc seems to be in pleuravac since yesterday, appears serous Dornase 50cc infused in chest tube. After this, began leaking and attempt to administer alteplase was unsuccessful. Patient tolerated well. A/P: Unclamp chest tube around 1:30pm. I spoke to nurse regarding this Fibronolytic appears to be working. If he continues to leak from around chest tube site with more administration, will consider just observing and repeat imaging on Saturday
--- NOTE | 2018-10-11 14:18 | PN ---
Subjective Date of Service: 10/11/18 Interval History: Patient is in moderate 4/10 pain in side which is improving from yesterday but was worse overnight and responded well to Morphine. Patient denies F/C, rigors, CP, SOB, N/V, abdominal pain, dysuria, dizziness, palpitations, or other pain. Family History: Unchanged from Admission Social History: Unchanged from Admission Past Medical History: Unchanged from Admission Objective Active Medications: Acetaminophen (Tylenol Tab*) 650 mg PO Q4H PRN PRN Reason: FEVER/PAIN Last Admin: 10/10/18 14:12 Dose: 650 mg Docusate Sodium (Colace Cap*) 200 mg PO DAILY PRN PRN Reason: CONSTIPATION Last Admin: 10/11/18 10:13 Dose: 200 mg Piperacillin Sod/Tazobactam (Sod 3.375 gm/ Sodium Chloride) 100 mls @ 25 mls/ hr IVPB Q8H [facility] Last Admin: 10/11/18 09:52 Dose: 25 mls/hr Dornase Yoseph 5 mg/ Sodium (Chloride) 50 mls @ 0 mls/hr INTRAPLEUR Q24H [facility] Stop: 10/12/18 09:01 Last Admin: 10/11/18 11:41 Dose: Not Given Alteplase, Recombinant 10 mg/ (Sodium Chloride) 50 mls @ 0 mls/hr INTRAPLEUR Q24H [facility] Stop: 10/12/18 09:01 Last Admin: 10/11/18 11:41 Dose: Not Given Morphine Sulfate (Morphine Vial*) 4 mg IV Q4H PRN PRN Reason: PAIN Last Admin: 10/11/18 05:29 Dose: 2 mg Ondansetron HCl (Zofran Inj*) 4 mg IV Q6H PRN PRN Reason: NAUSEA Pharmacy Consult (Zosyn Per Pharmacy*) 1 note FOLLOW UP .ZOSYN PER PHARMACY [facility] Pharmacy Profile Note (Ppd Reading Note*) 1 note .SEE ORDER .PPD READING ONE Stop: 10/13/18 12:01 Tramadol HCl (Ultram*) 50 mg PO Q8H PRN PRN Reason: PAIN Last Admin: 10/11/18 01:03 Dose: 50 mg Vital Signs - 8 hr 10/11/18 09:52 Respiratory 29 Rate Oxygen Devices in Use Now: None Appearance: Patient is a 43yo male who appears stated age and is sitting in the bed in NAD. Eyes: No Scleral Icterus, PERRLA Ears/Nose/Mouth/Throat: NL Teeth, Lips, Gums, Clear Oropharnyx, Mucous Membranes Moist Neck: NL Appearance and Movements; NL JVP, Trachea Midline Respiratory: Symmetrical Chest Expansion and Respiratory Effort, - - Diminished lung sounds on right side, improved from previous exam. Cardiovascular: NL Sounds; No Murmurs; No JVD, RRR, No Edema Abdominal: NL Sounds; No Tenderness; No Distention, No Hepatosplenomegaly Lymphatic: No Cervical Adenopathy Extremities: No Edema, No Clubbing, Cyanosis Skin: No Rash or Ulcers, No Nodules or Sclerosis, - - Chest tube in place draining clear yellow fluid. Neurological: Alert and Oriented x 3, NL Sensation, NL Muscle Strength and Tone Result Diagrams: 10/11/18 06:52 10/11/18 06:52 Microbiology and Other Data: Microbiology 10/08/18 12:40 Aerobic Blood Culture - Preliminary Blood Venous No Growth Day 1 Anaerobic Blood Culture - Preliminary No Growth Day 1 10/08/18 13:00 Gram Stain - Final Pleural Fluid Body Fluid Culture - Preliminary No Growth Day 1 10/08/18 10:25 Aerobic Blood Culture - Preliminary Blood Venous No Growth Day 1 Anaerobic Blood Culture - Preliminary No Growth Day 1 10/08/18 10:20 Urine Culture - Final Urine No Growth (<1,000 CFU/mL) Legionella Urinary Antigen - Final Negative Legionella Antigen 10/08/18 09:14 Streptococcus pneumoniae Ag Screen - Final Urine Negative S. pneumo Antigen 10/08/18 09:50 Influenza Types A,B Antigen - Final Nasal Specimen received for Influenza A/B Molecular testing Assess/Plan/Problems-Billing Assessment: This is a 43 year old man with history of hypertension who recently returned from a trip to [place] and presented with chest pain and was found to have a right sided pleural effusion who is on IV antibiotics and has a chest tube placed for drainage. Patient is still being evaluated for possible tuberculosis. - Patient Problems (1) Pleural effusion Current Visit: Yes Status: Acute Code(s): J90 - PLEURAL EFFUSION, NOT ELSEWHERE CLASSIFIED SNOMED Code(s): 55886920 Comment: - Fluid LDH and Protein strongly positive for Exudative effusion - Pleural fluid culture pending, gram stain, and acid fast stain are negative - Neutrophilic predominance suggests against TB - Appreciate Pulmonology input - Chest tube placed by surgery and draining yellow fluid. Continue with TPA - IGRA and PPD placed to evaluate for TB. (2) Sepsis Current Visit: Yes Status: Acute Comment: - 2 episodes of tachycardia, fever, and diaphoresis which resolved with fluids and broadening of antibiotic coverage. - Continue Zosyn and vancomycin. (3) HTN (hypertension) Current Visit: Yes Status: Acute Code(s): I10 - ESSENTIAL (PRIMARY) HYPERTENSION SNOMED Code(s): 79046786 Comment: - Diet controlled, normotensive at this time. (4) DVT prophylaxis Current Visit: Yes Status: Acute Code(s): EJN9412 - SNOMED Code(s): 995874529 Comment: - Low Risk (5) Full code status Current Visit: Yes Status: Acute Code(s): Z78.9 - OTHER SPECIFIED HEALTH STATUS SNOMED Code(s): 541183389 Status and Disposition: Inpatient for chest tube, IV antibiotics and full diagnostic evaluation of pleural effusion and chest tube.
[2018-10-12] MEDS: ZOSYN 3.375 GM Q8H per EXTENDED INFUSION IVPB SCH ×6 (00:25→16:22)
[2018-10-12] MEDS: Alteplase (CATHFLO)* 10 MG in NS 0.9% 50 ML* 40 ML INTRAPLEUR SCH (11:40)
--- NOTE | 2018-10-12 11:40 | PN ---
Progress Note - Progress Note Date of Service: 10/12/18 Note: Surgery Progress: S: Doing well, feels less pain today. O: CT drainage light serosang; no drainage recorded in I/O but does not appear different level from yesterday A/P: s/p Right chest tube for loculated pleural effusion 1st dose of Dornase/Alteplase administered via chest tube on 10/10; second dose was administered yesterday but only Dornase because of a lot of leakage. Will not plan another dose today as unlikely to succeed if it continues to drain. Plan to obtain CT chest tomorrow to evaluate for improvement in loculations.
[2018-10-12] MEDS: DORNASE ALFA 1 mg/ml(NF) 5 MG in NS 0.9% 50 ML* 45 ML INTRAPLEUR SCH (11:41)
--- NOTE | 2018-10-12 12:58 | PN ---
Subjective Date of Service: 10/12/18 Interval History: Patient feeling well today. Has minimal pain. Patient is able to take deeper breaths today. Patient denies F/C, N/V, abdominal pain, diarrhea, CP, SOB, dysuria, or other pain. Patient has many questions about his chest tube and diagnoses which were answered. Family History: Unchanged from Admission Social History: Unchanged from Admission Past Medical History: Unchanged from Admission Objective Active Medications: Acetaminophen (Tylenol Tab*) 650 mg PO Q4H PRN PRN Reason: FEVER/PAIN Last Admin: 10/10/18 14:12 Dose: 650 mg Docusate Sodium (Colace Cap*) 200 mg PO DAILY PRN PRN Reason: CONSTIPATION Last Admin: 10/11/18 10:13 Dose: 200 mg Piperacillin Sod/Tazobactam (Sod 3.375 gm/ Sodium Chloride) 100 mls @ 25 mls/ hr IVPB Q8H [facility] Last Admin: 10/12/18 08:31 Dose: 25 mls/hr Morphine Sulfate (Morphine Vial*) 4 mg IV Q4H PRN PRN Reason: PAIN Last Admin: 10/11/18 05:29 Dose: 2 mg Ondansetron HCl (Zofran Inj*) 4 mg IV Q6H PRN PRN Reason: NAUSEA Pharmacy Consult (Zosyn Per Pharmacy*) 1 note FOLLOW UP .ZOSYN PER PHARMACY [facility] Pharmacy Profile Note (Ppd Reading Note*) 1 note .SEE ORDER .PPD READING ONE Stop: 10/13/18 12:01 Tramadol HCl (Ultram*) 50 mg PO Q8H PRN PRN Reason: PAIN Last Admin: 10/11/18 01:03 Dose: 50 mg Vital Signs - 8 hr 10/12/18 10/12/18 07:27 08:20 Temperature 98.3 F Pulse Rate 81 Respiratory 23 23 Rate Blood Pressure 119/76 (mmHg) O2 Sat by Pulse 97 Oximetry Oxygen Devices in Use Now: None Appearance: Patient is a 43yo male who appears stated age and is sitting in the bed in NAD. Eyes: No Scleral Icterus, PERRLA Ears/Nose/Mouth/Throat: NL Teeth, Lips, Gums, Clear Oropharnyx, Mucous Membranes Moist Neck: NL Appearance and Movements; NL JVP, Trachea Midline Respiratory: Symmetrical Chest Expansion and Respiratory Effort, - - Diminished on Right side. Cardiovascular: NL Sounds; No Murmurs; No JVD, RRR, No Edema Abdominal: NL Sounds; No Tenderness; No Distention, No Hepatosplenomegaly Lymphatic: No Cervical Adenopathy Extremities: No Edema, No Clubbing, Cyanosis Skin: No Nodules or Sclerosis, - - 15mm induration on right forearm. Neurological: Alert and Oriented x 3, NL Sensation, NL Muscle Strength and Tone , - - CN II-XII intact. Lines/Tubes/Other Access: Clean, Dry and Intact Chest Tube - Serosanguinous drainage Result Diagrams: 10/11/18 06:52 10/11/18 06:52 Microbiology and Other Data: Microbiology 10/08/18 12:40 Aerobic Blood Culture - Preliminary Blood Venous No Growth Day 1 Anaerobic Blood Culture - Preliminary No Growth Day 1 10/08/18 13:00 Gram Stain - Final Pleural Fluid Body Fluid Culture - Preliminary No Growth Day 1 10/08/18 10:25 Aerobic Blood Culture - Preliminary Blood Venous No Growth Day 1 Anaerobic Blood Culture - Preliminary No Growth Day 1 10/08/18 10:20 Urine Culture - Final Urine No Growth (<1,000 CFU/mL) Legionella Urinary Antigen - Final Negative Legionella Antigen 10/08/18 09:14 Streptococcus pneumoniae Ag Screen - Final Urine Negative S. pneumo Antigen 10/08/18 09:50 Influenza Types A,B Antigen - Final Nasal Specimen received for Influenza A/B Molecular testing Assess/Plan/Problems-Billing Assessment: This is a 43 year old man with history of hypertension who recently returned from a trip to [place] and presented with chest pain and was found to have a right sided pleural effusion who is on IV antibiotics and has a chest tube placed for drainage. Patient is still being evaluated for possible tuberculosis. - Patient Problems (1) Pleural effusion Current Visit: Yes Status: Acute Code(s): J90 - PLEURAL EFFUSION, NOT ELSEWHERE CLASSIFIED SNOMED Code(s): 32651126 Comment: - Fluid LDH and Protein strongly positive for Exudative effusion - Pleural fluid culture pending, gram stain, and acid fast stain are negative - Neutrophilic predominance suggests against TB - Appreciate Pulmonology input - Appreciate Chest tube placed by surgery and management - Draining yellow fluid. Continue with TPA as needed. CT to assess loculation tomorrow. - IGRA and PPD placed to evaluate for TB. - PPD with 15mm induration. IGRA pending, Likely latent TB. - Fusobacterium growing in pleural fluid, likely aspiration source of pneumonia/ effusion. (2) Sepsis Current Visit: Yes Status: Acute Comment: - 2 episodes of tachycardia, fever, and diaphoresis which resolved with fluids and broadening of antibiotic coverage. - Continue Zosyn, stop vancomycin. (3) HTN (hypertension) Current Visit: Yes Status: Acute Code(s): I10 - ESSENTIAL (PRIMARY) HYPERTENSION SNOMED Code(s): 37220373 Comment: - Diet controlled, normotensive at this time. (4) DVT prophylaxis Current Visit: Yes Status: Acute Code(s): GMJ8441 - SNOMED Code(s): 980521614 Comment: - Low Risk (5) Full code status Current Visit: Yes Status: Acute Code(s): Z78.9 - OTHER SPECIFIED HEALTH STATUS SNOMED Code(s): 483015832 Status and Disposition: Inpatient for chest tube, IV antibiotics and full diagnostic evaluation of pleural effusion and chest tube.
[2018-10-12] MEDS: PPD Reading NOTE* (*USE PPD ORDER SET*) ONE (14:01)
[2018-10-13] MEDS: ZOSYN 3.375 GM Q8H per EXTENDED INFUSION IVPB SCH ×6 (00:17→16:18)
[2018-10-13] MEDS: Acetaminophen TAB* 325 MG PO PRN (05:56)
[2018-10-13 07:06] LABS: ABS Basophils 0 10^3/ul (0-0.2); ABS Eosinophils 0.3 10^3/ul (0-0.6); ABS Lymphocytes 1.1 10^3/ul (1.0-4.8); ABS Monocytes 0.7 10^3/ul (0-0.8); ABS Neutrophils 5.4 10^3/ul (1.5-7.7); ABS Nucleated RBC 0 10^3/ul; Eosinophil % 4.3 % (0-6); Hematocrit 39 % (42-52); Hemoglobin 12.8 g/dl (14.0-18.0); Lymphocyte % 14.5 % (25-47); Mean Corpuscular HGB Conc 33 g/dl (31-36); Mean Corpuscular Hemoglobin 27 pg (27-31); Mean Corpuscular Volume 81 fL (80-94); Mean Platelet Volume 7.9 fL (7.4-10.4); Nucleated Red Blood Cells % 0.1; Platelet Count 261 10^3/ul (150-450); Red Cell Distribution Width 13 % (10.5-15); White Blood Count 7.5 10^3/ul (3.5-10.8)
[2018-10-13 07:26] LABS: EGFR Non-African American 109.2 (>60)
--- NOTE | 2018-10-13 10:13 | PN ---
Progress Note - Progress Note Date of Service: 10/13/18 SOAP: Subjective: CC: chest pain HPI: 43 year old man with 2 months on and off right chest pain, initial cough which is gone. Right sided pleural effusion s/p thoracentesis and chest tube. Appetite and energy improving, no fever, rash, or diarrhea. Objective: Vital Signs Temp 36.5 C 10/13/18 07:59 Pulse 79 10/13/18 07:59 Resp 18 10/13/18 07:59 BP 125/80 10/13/18 07:59 Pulse Ox 95 10/13/18 07:59 Intake & Output 10/12/18 10/13/18 10/13/18 18:59 06:59 18:59 Intake Total 2280 280 Output Total 1550 Balance 2280 -1270 Intake: IV Fluids 100 60 ABX - ZOSYN 100 NS (0.9%) 60 IVPB 220 ABX - ZOSYN 220 Oral 2180 0 Output: Urine 1550 Other: # Bowel Movements 0 # Voids 750 0 Gen:awake, no distress HEENT: no thrush Heart:RRR no murmur Lungs:decr BS R base; R chest tube Skin: no rash Abd: +BS NTND soft MSK: no spine tenderness Laboratory Results - last 24 hr 10/13/18 10/13/18 06:39 06:39 WBC 7.5 RBC 4.80 Hgb 12.8 L Hct 39 L MCV 81 MCH 27 MCHC 33 RDW 13 Plt Count 261 MPV 7.9 Neut % (Auto) 71.8 Lymph % (Auto) 14.5 L [place] % (Auto) 8.9 H Eos % (Auto) 4.3 Baso % (Auto) 0.5 Absolute Neuts (auto) 5.4 Absolute Lymphs (auto) 1.1 Absolute Monos (auto) 0.7 Absolute Eos (auto) 0.3 Absolute Basos (auto) 0 Absolute Nucleated RBC 0 Nucleated RBC % 0.1 Sodium 136 Potassium 3.8 Chloride 103 Carbon Dioxide 25 Anion Gap 8 BUN 14 Creatinine 0.78 Est GFR ( Amer) 132.1 Est GFR (Non-Af Amer) 109.2 BUN/Creatinine Ratio 17.9 Glucose 109 H Calcium 9.0 Magnesium 2.1 Microbiology 10/09/18 17:30 Gram Stain - Final Pleural Fluid Body Fluid Culture - Preliminary Fusobacterium Nucleatum 11/15/18 20:30 Aerobic Blood Culture - Preliminary Blood Venous No Growth Day 3 Anaerobic Blood Culture - Preliminary No Growth Day 3 10/09/18 16:30 Aerobic Blood Culture - Preliminary Blood Venous No Growth Day 3 Anaerobic Blood Culture - Preliminary No Growth Day 3 10/08/18 12:40 Aerobic Blood Culture - Preliminary Blood Venous No Growth Day 4 Anaerobic Blood Culture - Preliminary No Growth Day 4 10/08/18 10:25 Aerobic Blood Culture - Preliminary Blood Venous No Growth Day 4 Anaerobic Blood Culture - Preliminary No Growth Day 4 10/08/18 13:00 Gram Stain - Final Pleural Fluid Body Fluid Culture - Final No Growth Day 4 10/10/18 11:40 Gram Stain - Final Sputum Sputum Culture - Final Normal Lindsay Assessment: 1. Right empyema, positive culture with GNAR so despite positive TST more likely a typical bacterial process 2. Positive TST 3. mildly elevated CRP Plan: 1. continue zosyn day 4 since thoracentesis, needs 28 day course total, follow up CT pending, if significant undrained pockets will consider ongoing IV treatment
[2018-10-13] MEDS ORDERED: Iohexol 300* (CONTRAST) 10 ML SDV IV ONE (10:24)
[2018-10-13] MEDS: PPD Reading NOTE* (*USE PPD ORDER SET*) ONE (12:54)
--- NOTE | 2018-10-13 12:55 | PN ---
Subjective Date of Service: 10/13/18 Interval History: Resting in bed. Reports he feels like himself today, which is improvement. Chest tube in place and draining, SS fluid. Nurse reports 30 mls since the start of her shift at 0700 today. Reports mild pain with deep breathing, but improved from previously. Denies cp, sob, n/v/d. 12 point ROS completed and all other negative except above mentioned. Family History: Unchanged from Admission Social History: Unchanged from Admission Past Medical History: Unchanged from Admission Objective Active Medications: Acetaminophen (Tylenol Tab*) 650 mg PO Q4H PRN PRN Reason: FEVER/PAIN Last Admin: 10/13/18 05:56 Dose: 650 mg Docusate Sodium (Colace Cap*) 200 mg PO DAILY PRN PRN Reason: CONSTIPATION Last Admin: 10/11/18 10:13 Dose: 200 mg Piperacillin Sod/Tazobactam (Sod 3.375 gm/ Sodium Chloride) 100 mls @ 25 mls/ hr IVPB Q8H [facility] Last Admin: 10/13/18 08:04 Dose: 25 mls/hr Morphine Sulfate (Morphine Vial*) 4 mg IV Q4H PRN PRN Reason: PAIN Last Admin: 10/11/18 05:29 Dose: 2 mg Ondansetron HCl (Zofran Inj*) 4 mg IV Q6H PRN PRN Reason: NAUSEA Pharmacy Consult (Zosyn Per Pharmacy*) 1 note FOLLOW UP .ZOSYN PER PHARMACY [facility] Tramadol HCl (Ultram*) 50 mg PO Q8H PRN PRN Reason: PAIN Last Admin: 10/11/18 01:03 Dose: 50 mg Vital Signs - 8 hr 10/13/18 07:59 Temperature 97.7 F Pulse Rate 79 Respiratory 18 Rate Blood Pressure 125/80 (mmHg) O2 Sat by Pulse 95 Oximetry Oxygen Devices in Use Now: None Appearance: Well appearing. NAD. Eyes: No Scleral Icterus Ears/Nose/Mouth/Throat: Mucous Membranes Moist Neck: NL Appearance and Movements; NL JVP Respiratory: Symmetrical Chest Expansion and Respiratory Effort, Clear to Auscultation Cardiovascular: NL Sounds; No Murmurs; No JVD, RRR, No Edema Abdominal: NL Sounds; No Tenderness; No Distention Extremities: No Edema Skin: No Rash or Ulcers Neurological: Alert and Oriented x 3 Nutrition: Taking PO's Result Diagrams: 10/13/18 06:39 10/13/18 06:39 Additional Lab and Data: Laboratory Results - last 24 hr 10/13/18 10/13/18 06:39 06:39 WBC 7.5 RBC 4.80 Hgb 12.8 L Hct 39 L MCV 81 MCH 27 MCHC 33 RDW 13 Plt Count 261 MPV 7.9 Neut % (Auto) 71.8 Lymph % (Auto) 14.5 L [place] % (Auto) 8.9 H Eos % (Auto) 4.3 Baso % (Auto) 0.5 Absolute Neuts (auto) 5.4 Absolute Lymphs (auto) 1.1 Absolute Monos (auto) 0.7 Absolute Eos (auto) 0.3 Absolute Basos (auto) 0 Absolute Nucleated RBC 0 Nucleated RBC % 0.1 Sodium 136 Potassium 3.8 Chloride 103 Carbon Dioxide 25 Anion Gap 8 BUN 14 Creatinine 0.78 Est GFR ( Amer) 132.1 Est GFR (Non-Af Amer) 109.2 BUN/Creatinine Ratio 17.9 Glucose 109 H Calcium 9.0 Magnesium 2.1 Microbiology and Other Data: Microbiology 10/09/18 17:30 Pleural Fluid Gram Stain - Final 10/09/18 17:30 Pleural Fluid Body Fluid Culture - Final Fusobacterium Nucleatum 10/08/18 10:25 Blood Venous Aerobic Blood Culture - Final No Growth Day 5 10/08/18 10:25 Blood Venous Anaerobic Blood Culture - Final No Growth Day 5 10/09/18 20:30 Blood Venous Aerobic Blood Culture - Preliminary No Growth Day 3 10/09/18 20:30 Blood Venous Anaerobic Blood Culture - Preliminary No Growth Day 3 10/09/18 16:30 Blood Venous Aerobic Blood Culture - Preliminary No Growth Day 3 10/09/18 16:30 Blood Venous Anaerobic Blood Culture - Preliminary No Growth Day 3 10/08/18 12:40 Blood Venous Aerobic Blood Culture - Preliminary No Growth Day 4 10/08/18 12:40 Blood Venous Anaerobic Blood Culture - Preliminary No Growth Day 4 10/08/18 13:00 Pleural Fluid Gram Stain - Final 10/08/18 13:00 Pleural Fluid Body Fluid Culture - Final No Growth Day 4 10/10/18 11:40 Sputum Gram Stain - Final 10/10/18 11:40 Sputum Sputum Culture - Final Normal Lindsay 10/10/18 11:40 Respiratory Acid Fast Bacilli Smear - Final 10/09/18 17:30 Body Fluid - Pleura, Rt Lung Acid Fast Bacilli Smear - Final 10/08/18 10:20 Urine Urine Culture - Final No Growth (<1,000 CFU/mL) 10/08/18 10:20 Urine Legionella Urinary Antigen - Final Negative Legionella Antigen 10/08/18 09:14 Urine Streptococcus pneumoniae Ag Screen - Final Negative S. pneumo Antigen 10/08/18 09:50 Nasal Influenza Types A,B Antigen - Final Specimen received for Influenza A/B Molecular testing Assess/Plan/Problems-Billing Assessment: This is a 43 year old man with history of hypertension who recently returned from a trip to [place] and presented with chest pain and was found to have a right sided pleural effusion who is on IV antibiotics and has a chest tube placed for drainage. Patient is still being evaluated for possible tuberculosis. Patient had positive TST but due to culture results of GNAR, ID believes typical bacterial process - Patient Problems (1) Pleural effusion Comment: - Fluid LDH and Protein strongly positive for Exudative effusion - Pleural fluid culture GNAR. Gram stain and acid fast stain are negative - Neutrophilic predominance suggests against TB - Appreciate Pulmonology input - Appreciate Chest tube placed by surgery and management - Draining yellow fluid. Continue with TPA as needed. - Todays repeat CT to assess loculation revealed additional loculated effusion measuring 7.1 x 3.9 cm which does not appear to be draining. Surgery to re evaluate patient this evening and discuss plan - IGRA and PPD placed to evaluate for TB. - PPD with 15mm induration. IGRA pending, Likely latent TB. - Fusobacterium growing in pleural fluid, likely aspiration source of pneumonia/ effusion. (2) Sepsis Comment: - 2 episodes of tachycardia, fever, and diaphoresis which resolved with fluids and broadening of antibiotic coverage. - Continue Zosyn (3) HTN (hypertension) Comment: - Diet controlled, normotensive at this time. (4) DVT prophylaxis Comment: - Low Risk (5) Full code status Status and Disposition: Inpatient for chest tube, IV antibiotics and full diagnostic evaluation of pleural effusion and chest tube. Attending: Ramin Rodrigues
--- NOTE | 2018-10-13 13:27 | PN ---
Progress Note - Progress Note Date of Service: 10/13/18 - Pulm f/u note Note: Pt seen and examined at bedside this am. Pt reports improvement in chest pain, fatigue. Is able to take deep breath. Has soreness at chest tube insertion site Active Medications Generic Name Dose Route Start Last Admin Trade Name Freq PRN Reason Stop Dose Admin Acetaminophen 650 mg 10/08/18 11:19 10/13/18 05:56 Tylenol Tab* PO 650 mg Q4H PRN Administration FEVER/PAIN Docusate Sodium 200 mg 10/10/18 10:59 10/11/18 10:13 Colace Cap* PO 200 mg DAILY PRN Administration CONSTIPATION Piperacillin Sod/Tazobactam 100 mls @ 25 mls/hr 10/10/18 00:00 10/13/18 08:04 Sod 3.375 gm/ Sodium Chloride IVPB 25 mls/hr Q8H [facility] Administration Morphine Sulfate 4 mg 10/10/18 14:50 10/11/18 05:29 Morphine Vial* IV 2 mg Q4H PRN Administration PAIN Ondansetron HCl 4 mg 10/08/18 11:19 Zofran Inj* IV Q6H PRN NA[facility]A Pharmacy Consult 1 note 10/09/18 19:00 Zosyn Per Pharmacy* FOLLOW UP .ZOSYN PER PHARMACY [facility] Tramadol HCl 50 mg 10/08/18 20:04 10/11/18 01:03 Ultram* PO 50 mg Q8H PRN Administration PAIN Vital Signs Temp Pulse Resp BP Pulse Ox 97.7 F 79 18 125/80 95 10/13/18 07:59 10/13/18 07:59 10/13/18 07:59 10/13/18 07:59 10/13/18 07:59 CT chest reviewed by me personally- Loculated rt pl effusion with pocket adjacent to chest tube and adjacent atelectasis and air space opacity. Mild mediastinal adenopathy I/R: 43 y o m with dental issues with caries with rt sided PNA and loculated effusion, s/p thoracentesis with transudative effusion and loculated effusion, cx positive for fusobacterium- oral pathogen Pt on Zosyn for anaeribic coverage Had chest tube placement with tPA administration at one dose, rpt CT chest showed an isolated loculation Pt to have drainage of loculated fluid by IR Pain is improved
--- NOTE | 2018-10-13 18:27 | PN ---
Progress Note - Progress Note Date of Service: 10/13/18 Note: Surgery Progress: S: no c/o re: SOB, fever/chills. There is some pain at the Chest tube site, but he is not requiring narcotic analgesia. Events of weekend noted. Dr. Cat note reviewed. O: Tmax 99.5 Intake and Output Last 24 Hours 10/11/18 10/12/18 10/13/18 10/14/18 06:59 06:59 06:59 06:59 Intake Total 3015 930 2560 430 Output Total 1550 30 Balance 3015 930 1010 400 Weight 171 lb Intake: IV Fluids 1188 100 160 100 ABX - ZOSYN 0 100 100 100 NS (0.9%) 1088 60 IVPB 687 110 220 ABX - ZOSYN 215 110 220 NS (0.9%) 472 Oral 5414 723 5028 330 Output: Chest Tube #1 30 Urine 1550 Other: Estimated Void Large # Bowel Movements 0 0 0 # Voids 2 0 0 Gen: appears comfortable; NAD Lungs: Right: clear upper correa; crackles at base Pleurevac: no airleak; total drainage ~ 1100 (only ~ 200 ml/ 48hr) CT today show residual collection measuring ~ 7 x 4 x 9 cm inferior and posterior to chest tube (reviewed w/ patient) C&S from pleural fluid: ORDERED: BF Cult/GS COMMENTS: Verbal to DR CHACON by [id number] at 1356 on 10/13/18. Results read back accurately. Procedure Result Reported Site Body Fluid Gram Stain Final 10/13/18- 1149 ML 4+ Neutrophils No Organisms Seen Preparation By Cytospin Smear Body Fluid Culture Final 10/13/18- 1149 ML Organism 1 FUSOBACTERIUM NUCLEATUM Quantity 1+ Anaerobic sensitivities are not routinely performed. Positive isolates will be saved for one week. Please call the Microbiology Laboratory if susceptibility testing is needed. A: s/p Right chest tube placement for loc pleural effusion, improved, but with residual collection P: discussed w/ patient re: utility of current chest tube, possible removal, and possible need for add'l procedure (CT or US-guided drainage of residual collection) in conjunction with ongoing abx tx per ID. Will d/w Dr. Cox.
--- NOTE | 2018-10-13 19:11 | PN ---
Progress Note - Progress Note Date of Service: 10/13/18 Note: Clinical course reviewed. I have personally reviewed CT scan. At this point, the fibrinolytics have worked well, allowing resolution of all but a single well0-defined residual pocket. This pocket should be readily accessible by image guidance. I would leave chest tube in until after the percutaneous drainage procedure, in case any air leak were to result from the procedure.
[2018-10-14] MEDS: ZOSYN 3.375 GM Q8H per EXTENDED INFUSION IVPB SCH ×6 (00:33→16:02)
[2018-10-14] MEDS: Acetaminophen TAB* 325 MG PO PRN (00:41)
[2018-10-14 07:50] LABS: ABS Basophils 0 10^3/ul (0-0.2); ABS Eosinophils 0.4 10^3/ul (0-0.6); ABS Lymphocytes 1.3 10^3/ul (1.0-4.8); ABS Monocytes 0.8 10^3/ul (0-0.8); ABS Neutrophils 4.9 10^3/ul (1.5-7.7); ABS Nucleated RBC 0 10^3/ul; Eosinophil % 5.4 % (0-6); Hematocrit 40 % (42-52); Hemoglobin 13.1 g/dl (14.0-18.0); Lymphocyte % 16.9 % (25-47); Mean Corpuscular HGB Conc 33 g/dl (31-36); Mean Corpuscular Hemoglobin 26 pg (27-31); Mean Corpuscular Volume 81 fL (80-94); Mean Platelet Volume 7.5 fL (7.4-10.4); Nucleated Red Blood Cells % 0; Platelet Count 287 10^3/ul (150-450); Red Blood Count 4.96 10^6/ul (4.00-5.40); Red Cell Distribution Width 13 % (10.5-15); White Blood Count 7.4 10^3/ul (3.5-10.8)
[2018-10-14 08:11] LABS: EGFR Non-African American 109.2 (>60)
--- NOTE | 2018-10-14 12:13 | PN ---
Subjective Date of Service: 10/14/18 Interval History: Resting in bed on airborne precautions. Reports intermittent pain in right side of torso which is alleviated with positioning and/or Tylenol. Chest tube in place. Plan for Ultrasound guided drainage today. 12 point ROS completed and all others negative except for above Family History: Unchanged from Admission Social History: Unchanged from Admission Past Medical History: Unchanged from Admission Objective Active Medications: Acetaminophen (Tylenol Tab*) 650 mg PO Q4H PRN PRN Reason: FEVER/PAIN Last Admin: 10/14/18 00:41 Dose: 650 mg Docusate Sodium (Colace Cap*) 200 mg PO DAILY PRN PRN Reason: CONSTIPATION Last Admin: 10/11/18 10:13 Dose: 200 mg Piperacillin Sod/Tazobactam (Sod 3.375 gm/ Sodium Chloride) 100 mls @ 25 mls/ hr IVPB Q8H SHELLY Last Admin: 10/14/18 08:23 Dose: 25 mls/hr Morphine Sulfate (Morphine Vial*) 4 mg IV Q4H PRN PRN Reason: PAIN Last Admin: 10/11/18 05:29 Dose: 2 mg Ondansetron HCl (Zofran Inj*) 4 mg IV Q6H PRN PRN Reason: NAUSEA Pharmacy Consult (Zosyn Per Pharmacy*) 1 note FOLLOW UP .ZOSYN PER PHARMACY SHELLY Tramadol HCl (Ultram*) 50 mg PO Q8H PRN PRN Reason: PAIN Last Admin: 10/11/18 01:03 Dose: 50 mg Vital Signs - 8 hr 10/14/18 10/14/18 07:53 08:00 Temperature 97.7 F Pulse Rate 80 Respiratory 18 18 Rate Blood Pressure 110/81 (mmHg) O2 Sat by Pulse 95 Oximetry Oxygen Devices in Use Now: None Appearance: Well appearing Eyes: No Scleral Icterus Ears/Nose/Mouth/Throat: Mucous Membranes Moist Neck: NL Appearance and Movements; NL JVP Respiratory: Symmetrical Chest Expansion and Respiratory Effort, Clear to Auscultation Cardiovascular: NL Sounds; No Murmurs; No JVD, No Edema Abdominal: NL Sounds; No Tenderness; No Distention Extremities: No Edema Skin: No Rash or Ulcers Neurological: Alert and Oriented x 3 Nutrition: Taking PO's Result Diagrams: 10/14/18 07:39 10/14/18 07:39 Additional Lab and Data: Laboratory Results - last 24 hr 10/08/18 10/09/18 10/14/18 13:00 05:43 07:39 WBC 7.4 RBC 4.96 Hgb 13.1 L Hct 40 L MCV 81 MCH 26 L MCHC 33 RDW 13 Plt Count 287 MPV 7.5 Neut % (Auto) 66.7 Lymph % (Auto) 16.9 L [place] % (Auto) 10.4 H Eos % (Auto) 5.4 Baso % (Auto) 0.6 Absolute Neuts (auto) 4.9 Absolute Lymphs (auto) 1.3 Absolute Monos (auto) 0.8 Absolute Eos (auto) 0.4 Absolute Basos (auto) 0 Absolute Nucleated RBC 0 Nucleated RBC % 0 Sodium Potassium Chloride Carbon Dioxide Anion Gap BUN Creatinine Est GFR ( Amer) Est GFR (Non-Af Amer) BUN/Creatinine Ratio Glucose Calcium TB (QFT) Gold In Tube Negative TB Test (QFT) Nil 0.01 TB Test Mitogen - Nil 6.13 TB Test Antigen - Nil 0 Miscellaneous Test See comment 10/14/18 07:39 WBC RBC Hgb Hct MCV MCH MCHC RDW Plt Count MPV Neut % (Auto) Lymph % (Auto) [place] % (Auto) Eos % (Auto) Baso % (Auto) Absolute Neuts (auto) Absolute Lymphs (auto) Absolute Monos (auto) Absolute Eos (auto) Absolute Basos (auto) Absolute Nucleated RBC Nucleated RBC % Sodium 137 Potassium 4.0 Chloride 104 Carbon Dioxide 26 Anion Gap 7 BUN 14 Creatinine 0.78 Est GFR ( Amer) 132.1 Est GFR (Non-Af Amer) 109.2 BUN/Creatinine Ratio 17.9 Glucose 101 H Calcium 9.2 TB (QFT) Gold In Tube TB Test (QFT) Nil TB Test Mitogen - Nil TB Test Antigen - Nil Miscellaneous Test Microbiology and Other Data: Microbiology 10/09/18 17:30 Pleural Fluid Gram Stain - Final 10/09/18 17:30 Pleural Fluid Body Fluid Culture - Final Fusobacterium Nucleatum 10/08/18 10:25 Blood Venous Aerobic Blood Culture - Final No Growth Day 5 10/08/18 10:25 Blood Venous Anaerobic Blood Culture - Final No Growth Day 5 10/09/18 20:30 Blood Venous Aerobic Blood Culture - Preliminary No Growth Day 3 10/09/18 20:30 Blood Venous Anaerobic Blood Culture - Preliminary No Growth Day 3 10/09/18 16:30 Blood Venous Aerobic Blood Culture - Preliminary No Growth Day 3 10/09/18 16:30 Blood Venous Anaerobic Blood Culture - Preliminary No Growth Day 3 10/08/18 12:40 Blood Venous Aerobic Blood Culture - Preliminary No Growth Day 4 10/08/18 12:40 Blood Venous Anaerobic Blood Culture - Preliminary No Growth Day 4 10/08/18 13:00 Pleural Fluid Gram Stain - Final 10/08/18 13:00 Pleural Fluid Body Fluid Culture - Final No Growth Day 4 10/10/18 11:40 Sputum Gram Stain - Final 10/10/18 11:40 Sputum Sputum Culture - Final Normal Lindsay 10/10/18 11:40 Respiratory Acid Fast Bacilli Smear - Final 10/09/18 17:30 Body Fluid - Pleura, Rt Lung Acid Fast Bacilli Smear - Final 10/08/18 10:20 Urine Urine Culture - Final No Growth (<1,000 CFU/mL) 10/08/18 10:20 Urine Legionella Urinary Antigen - Final Negative Legionella Antigen 10/08/18 09:14 Urine Streptococcus pneumoniae Ag Screen - Final Negative S. pneumo Antigen 10/08/18 09:50 Nasal Influenza Types A,B Antigen - Final Specimen received for Influenza A/B Molecular testing Assess/Plan/Problems-Billing Assessment: This is a 43 year old man with history of hypertension who recently returned from a trip to [place] and presented with chest pain and was found to have a right sided pleural effusion who is on IV antibiotics and has a chest tube placed for drainage. Patient had positive TST but due to culture results of GNAR, ID believes typical bacterial process. Plan for additional drainage via ultrasound guide - Patient Problems (1) Pleural effusion Comment: - Fluid LDH and Protein strongly positive for Exudative effusion - Pleural fluid culture GNAR. Gram stain and acid fast stain are negative - Neutrophilic predominance suggests against TB - Appreciate Pulmonology input - Appreciate Chest tube placed by surgery and management - Todays repeat CT to assess loculation revealed additional loculated effusion measuring 7.1 x 3.9 cm which does not appear to be draining. Surgery evaluated patient last evening and plans for ultrasounded guided drainage today. - PPD with 15mm induration. IGRA pending, Likely latent TB. - Fusobacterium growing in pleural fluid, likely aspiration source of pneumonia/ effusion. (2) Sepsis Comment: - 2 episodes of tachycardia, fever, and diaphoresis which resolved with fluids and broadening of antibiotic coverage. - Continue Zosyn (3) HTN (hypertension) Comment: - Diet controlled, normotensive at this time. (4) DVT prophylaxis Comment: - Low Risk (5) Full code status Status and Disposition: Inpatient for chest tube, IV antibiotics and full diagnostic evaluation of pleural effusion and chest tube. Attending: Flora Suero
--- NOTE | 2018-10-14 18:06 | PN ---
Progress Note - Progress Note Date of Service: 10/14/18 - Pulm f/u note Note: Pt seen and examined at bedside. Pt was upset about having chest tube still and not being able to go home Has mild discomfort at chest tube insertion site when he lies down Active Medications Generic Name Dose Route Start Last Admin Trade Name Freq PRN Reason Stop Dose Admin Acetaminophen 650 mg 10/08/18 11:19 10/14/18 00:41 Tylenol Tab* PO 650 mg Q4H PRN Administration FEVER/PAIN Docusate Sodium 200 mg 10/10/18 10:59 10/11/18 10:13 Colace Cap* PO 200 mg DAILY PRN Administration CONSTIPATION Piperacillin Sod/Tazobactam 100 mls @ 25 mls/hr 10/10/18 00:00 10/14/18 16:02 Sod 3.375 gm/ Sodium Chloride IVPB 25 mls/hr Q8H SHELLY Administration Morphine Sulfate 4 mg 10/10/18 14:50 10/11/18 05:29 Morphine Vial* IV 2 mg Q4H PRN Administration PAIN Ondansetron HCl 4 mg 10/08/18 11:19 Zofran Inj* IV Q6H PRN NAUSEA Pharmacy Consult 1 note 10/09/18 19:00 Zosyn Per Pharmacy* FOLLOW UP .ZOSYN PER PHARMACY SHELLY Tramadol HCl 50 mg 10/08/18 20:04 10/11/18 01:03 Ultram* PO 50 mg Q8H PRN Administration PAIN Vital Signs Temp Pulse Resp BP Pulse Ox 98.1 F 85 16 121/79 96 10/14/18 12:01 10/14/18 12:01 10/14/18 12:01 10/14/18 12:01 10/14/18 12:01 O/E: Pt in NAD HEENT: PERRLA, No JVD Lungs: Diminished air entry at rt base, chest tube in place, no significant output CVS: S1, S+, regular Abd: Soft, BS+ Ext: No edema Skin: NO rash Neuro: No focal deficits Laboratory Results - last 24 hr 10/08/18 10/14/18 10/14/18 13:00 07:39 07:39 WBC 7.4 RBC 4.96 Hgb 13.1 L Hct 40 L MCV 81 MCH 26 L MCHC 33 RDW 13 Plt Count 287 MPV 7.5 Neut % (Auto) 66.7 Lymph % (Auto) 16.9 L [place] % (Auto) 10.4 H Eos % (Auto) 5.4 Baso % (Auto) 0.6 Absolute Neuts (auto) 4.9 Absolute Lymphs (auto) 1.3 Absolute Monos (auto) 0.8 Absolute Eos (auto) 0.4 Absolute Basos (auto) 0 Absolute Nucleated RBC 0 Nucleated RBC % 0 Sodium 137 Potassium 4.0 Chloride 104 Carbon Dioxide 26 Anion Gap 7 BUN 14 Creatinine 0.78 Est GFR ( Amer) 132.1 Est GFR (Non-Af Amer) 109.2 BUN/Creatinine Ratio 17.9 Glucose 101 H Calcium 9.2 Miscellaneous Test See comment CT chest reviewed by me personally- Loculated rt pl effusion with pocket adjacent to chest tube and adjacent atelectasis and air space opacity. Mild mediastinal adenopathy I/R: 43 y o m with dental issues with caries with rt sided PNA and loculated effusion, s/p thoracentesis with transudative effusion and loculated effusion, cx positive for fusobacterium- oral pathogen Pt on Zosyn for anaeribic coverage Had chest tube placement with tPA administration at one dose, rpt CT chest showed an isolated loculation Pt to have drainage of loculated fluid by IR tomorrow D/w Dr Elmore Rpt CT chest was obtained to assess loculated effusion versus lung abscess D/pito resp isolation as 2 AFB are negative His PPD is positive consistent with latent TB, he doesnot have active TB Will be able to remove chest tube after drainage of pleural fluid tomorrow morning Will need PICC line if IV abx needed
[2018-10-15] MEDS: Acetaminophen TAB* 325 MG PO PRN (00:10)
[2018-10-15] MEDS: ZOSYN 3.375 GM Q8H per EXTENDED INFUSION IVPB SCH ×6 (00:12→15:57)
[2018-10-15 05:57] LABS: ABS Basophils 0.1 10^3/ul (0-0.2); ABS Eosinophils 0.5 10^3/ul (0-0.6); ABS Lymphocytes 1.5 10^3/ul (1.0-4.8); ABS Monocytes 0.8 10^3/ul (0-0.8); ABS Neutrophils 4.6 10^3/ul (1.5-7.7); ABS Nucleated RBC 0 10^3/ul; Eosinophil % 6.6 % (0-6); Hematocrit 40 % (42-52); Lymphocyte % 19.7 % (25-47); Mean Corpuscular HGB Conc 33 g/dl (31-36); Mean Corpuscular Hemoglobin 27 pg (27-31); Mean Corpuscular Volume 81 fL (80-94); Mean Platelet Volume 7.9 fL (7.4-10.4); Nucleated Red Blood Cells % 0.1; Platelet Count 316 10^3/ul (150-450); Red Blood Count 4.91 10^6/ul (4.00-5.40); Red Cell Distribution Width 13 % (10.5-15); White Blood Count 7.4 10^3/ul (3.5-10.8)
[2018-10-15 06:15] LABS: EGFR Non-African American 98.8 (>60)
--- NOTE | 2018-10-15 11:53 | PN ---
Subjective Date of Service: 10/15/18 Interval History: Patient sitting in bed on assessment. No longer on isolation. Reports he has been walking occasionally. Reports continued positional pain to right side of torso near chest tube insertion in the evenings. Denies sob, cp, palpitations, n/v/d, fever/chills. Patient returned from ultrasound guided drainage and has drain in place. Awaiting removal of chest tube by surgical team 12 point ROS completed and all other negative except above mentioned. Family History: Unchanged from Admission Social History: Unchanged from Admission Past Medical History: Unchanged from Admission Objective Active Medications: Acetaminophen (Tylenol Tab*) 650 mg PO Q4H PRN PRN Reason: FEVER/PAIN Last Admin: 10/15/18 00:10 Dose: 650 mg Docusate Sodium (Colace Cap*) 200 mg PO DAILY PRN PRN Reason: CONSTIPATION Last Admin: 10/11/18 10:13 Dose: 200 mg Piperacillin Sod/Tazobactam (Sod 3.375 gm/ Sodium Chloride) 100 mls @ 25 mls/ hr IVPB Q8H SHELLY Last Admin: 10/15/18 08:24 Dose: 25 mls/hr Morphine Sulfate (Morphine Vial*) 4 mg IV Q4H PRN PRN Reason: PAIN Last Admin: 10/11/18 05:29 Dose: 2 mg Ondansetron HCl (Zofran Inj*) 4 mg IV Q6H PRN PRN Reason: NAUSEA Pharmacy Consult (Zosyn Per Pharmacy*) 1 note FOLLOW UP .ZOSYN PER PHARMACY SHELLY Tramadol HCl (Ultram*) 50 mg PO Q8H PRN PRN Reason: PAIN Last Admin: 10/11/18 01:03 Dose: 50 mg Vital Signs - 8 hr 10/15/18 10/15/18 10/15/18 03:57 07:45 08:00 Temperature 97.8 F 98.3 F Pulse Rate 64 78 Respiratory 17 18 18 Rate Blood Pressure 109/76 116/74 (mmHg) O2 Sat by Pulse 97 96 Oximetry Oxygen Devices in Use Now: None Appearance: Well appearing. Eyes: No Scleral Icterus Ears/Nose/Mouth/Throat: Mucous Membranes Moist Neck: NL Appearance and Movements; NL JVP Respiratory: Symmetrical Chest Expansion and Respiratory Effort, Clear to Auscultation Cardiovascular: NL Sounds; No Murmurs; No JVD, RRR, No Edema Abdominal: NL Sounds; No Tenderness; No Distention Extremities: No Edema Skin: - - Chest tube dressing CDI Nutrition: Taking PO's Result Diagrams: 10/15/18 05:17 10/15/18 05:17 Additional Lab and Data: Laboratory Results - last 24 hr 10/08/18 10/15/18 10/15/18 13:00 05:17 05:17 WBC 7.4 RBC 4.91 Hgb 13.0 L Hct 40 L MCV 81 MCH 27 MCHC 33 RDW 13 Plt Count 316 MPV 7.9 Neut % (Auto) 62.3 Lymph % (Auto) 19.7 L [place] % (Auto) 10.6 H Eos % (Auto) 6.6 H Baso % (Auto) 0.8 Absolute Neuts (auto) 4.6 Absolute Lymphs (auto) 1.5 Absolute Monos (auto) 0.8 Absolute Eos (auto) 0.5 Absolute Basos (auto) 0.1 Absolute Nucleated RBC 0 Nucleated RBC % 0.1 Sodium 137 Potassium 4.0 Chloride 105 Carbon Dioxide 27 Anion Gap 5 BUN 13 Creatinine 0.85 Est GFR ( Amer) 119.6 Est GFR (Non-Af Amer) 98.8 BUN/Creatinine Ratio 15.3 Glucose 97 Calcium 9.1 Miscellaneous Test See comment Microbiology and Other Data: Microbiology 10/09/18 17:30 Pleural Fluid Gram Stain - Final 10/09/18 17:30 Pleural Fluid Body Fluid Culture - Final Fusobacterium Nucleatum 10/08/18 10:25 Blood Venous Aerobic Blood Culture - Final No Growth Day 5 10/08/18 10:25 Blood Venous Anaerobic Blood Culture - Final No Growth Day 5 10/09/18 20:30 Blood Venous Aerobic Blood Culture - Preliminary No Growth Day 3 10/09/18 20:30 Blood Venous Anaerobic Blood Culture - Preliminary No Growth Day 3 10/09/18 16:30 Blood Venous Aerobic Blood Culture - Preliminary No Growth Day 3 10/09/18 16:30 Blood Venous Anaerobic Blood Culture - Preliminary No Growth Day 3 10/08/18 12:40 Blood Venous Aerobic Blood Culture - Preliminary No Growth Day 4 10/08/18 12:40 Blood Venous Anaerobic Blood Culture - Preliminary No Growth Day 4 10/08/18 13:00 Pleural Fluid Gram Stain - Final 10/08/18 13:00 Pleural Fluid Body Fluid Culture - Final No Growth Day 4 10/10/18 11:40 Sputum Gram Stain - Final 10/10/18 11:40 Sputum Sputum Culture - Final Normal Lindsay 10/10/18 11:40 Respiratory Acid Fast Bacilli Smear - Final 10/09/18 17:30 Body Fluid - Pleura, Rt Lung Acid Fast Bacilli Smear - Final 10/08/18 10:20 Urine Urine Culture - Final No Growth (<1,000 CFU/mL) 10/08/18 10:20 Urine Legionella Urinary Antigen - Final Negative Legionella Antigen 10/08/18 09:14 Urine Streptococcus pneumoniae Ag Screen - Final Negative S. pneumo Antigen 10/08/18 09:50 Nasal Influenza Types A,B Antigen - Final Specimen received for Influenza A/B Molecular testing Assess/Plan/Problems-Billing Assessment: This is a 43 year old man with history of hypertension who recently returned from a trip to [place] and presented with chest pain and was found to have a right sided pleural effusion who is on IV antibiotics and has a chest tube placed for drainage. Plan for additional drainage via ultrasound guide - Patient Problems (1) Pleural effusion Comment: - Right sided PNA and loculated effusion. S/P thoracentesis - Pleural fluid positive for fusobacterium. On IV Zosyn - PPD positive, but cultures and Murali gold negative. - Due to loculated effusion patient had ultrasound guided drainage today with pigtail drain placement. - Chest tube place in place and managed by surgery. Most likely will be removed this afternoon. Will need repeat chest xray 4 hrs after chest tube removed - Possible d/c tomorrow with Augmentin 500 mg TID for 3 more weeks per ID. - Follow up with Dr Blackman in one week and Dr Cat in 2 weeks. (2) Sepsis Comment: - 2 episodes of tachycardia, fever, and diaphoresis which resolved with fluids and broadening of antibiotic coverage. - Continue Zosyn (3) HTN (hypertension) Comment: - Diet controlled, normotensive at this time. (4) DVT prophylaxis Comment: - Low Risk (5) Full code status Status and Disposition: Inpatient. Attending: Flora Suero
[2018-10-15] MEDS ORDERED: fentaNYL* 50 MCG/ML 2 ML VIAL (100 MCG VIAL) ONE (12:46)
--- NOTE | 2018-10-15 15:11 | PN ---
Progress Note - Progress Note Date of Service: 10/15/18 - Pulm f/u Note: Pt seen and examined at bedside. Pt went down to radiology to have drainage from loculated pocket of fluid, denies significant pain Active Medications Generic Name Dose Route Start Last Admin Trade Name Arnelq PRN Reason Stop Dose Admin Acetaminophen 650 mg 10/08/18 11:19 10/15/18 00:10 Tylenol Tab* PO 650 mg Q4H PRN Administration FEVER/PAIN Docusate Sodium 200 mg 10/10/18 10:59 10/11/18 10:13 Colace Cap* PO 200 mg DAILY PRN Administration CONSTIPATION Piperacillin Sod/Tazobactam 100 mls @ 25 mls/hr 10/10/18 00:00 10/15/18 08:24 Sod 3.375 gm/ Sodium Chloride IVPB 25 mls/hr Q8H SHELLY Administration Morphine Sulfate 4 mg 10/10/18 14:50 10/11/18 05:29 Morphine Vial* IV 2 mg Q4H PRN Administration PAIN Ondansetron HCl 4 mg 10/08/18 11:19 Zofran Inj* IV Q6H PRN NAUSEA Pharmacy Consult 1 note 10/09/18 19:00 Zosyn Per Pharmacy* FOLLOW UP .ZOSYN PER PHARMACY SHE[facility] Tramadol HCl 50 mg 10/08/18 20:04 10/11/18 01:03 Ultram* PO 50 mg Q8H PRN Administration PAIN Vital Signs Temp Pulse Resp BP Pulse Ox 97.8 F 89 16 104/75 97 10/15/18 14:45 10/15/18 14:45 10/15/18 14:45 10/15/18 14:45 10/15/18 14:45 O/E: Pt in NAD HEENT: PERRLA, No JVD Lungs: Diminished air entry at rt base, chest tube and pig tail in place, no significant output CVS: S1, S+, regular Abd: Soft, BS+ Ext: No edema Skin: NO rash Neuro: No focal deficits Laboratory Results - last 24 hr 10/08/18 10/15/18 10/15/18 13:00 05:17 05:17 WBC 7.4 RBC 4.91 Hgb 13.0 L Hct 40 L MCV 81 MCH 27 MCHC 33 RDW 13 Plt Count 316 MPV 7.9 Neut % (Auto) 62.3 Lymph % (Auto) 19.7 L [place] % (Auto) 10.6 H Eos % (Auto) 6.6 H Baso % (Auto) 0.8 Absolute Neuts (auto) 4.6 Absolute Lymphs (auto) 1.5 Absolute Monos (auto) 0.8 Absolute Eos (auto) 0.5 Absolute Basos (auto) 0.1 Absolute Nucleated RBC 0 Nucleated RBC % 0.1 Sodium 137 Potassium 4.0 Chloride 105 Carbon Dioxide 27 Anion Gap 5 BUN 13 Creatinine 0.85 Est GFR ( Amer) 119.6 Est GFR (Non-Af Amer) 98.8 BUN/Creatinine Ratio 15.3 Glucose 97 Calcium 9.[address] chest reviewed by me personally- Loculated rt pl effusion with pocket adjacent to chest tube and adjacent atelectasis and air space opacity. Mild mediastinal adenopathy I/R: 43 y o m with dental issues with caries with rt sided PNA and loculated effusion, s/p thoracentesis with transudative effusion and loculated effusion, cx positive for fusobacterium- oral pathogen Pt on Zosyn for anaeribic coverage Had chest tube placement with tPA administration at one dose, rpt CT chest showed an isolated loculation Pt had drainage of loculated fluid by IR today, only 10cc could be drained Pt had pig tail placed into the space, for tPA administration through the pig tail by surgery His PPD is positive consistent with latent TB, he doesnot have active TB Will be able to remove larger chest tube Will need PICC line if IV abx needed D/w Susanne Dumont [employer]
[2018-10-15] MEDS ORDERED: Alteplase (CATHFLO)* 10 MG in NS 0.9% 50 ML* 40 ML INTRAPLEUR ONE (16:00)
[2018-10-15] MEDS ORDERED: DORNASE ALFA 1 mg/ml(NF) 5 MG in NS 0.9% 50 ML INTRAPLEUR ONE (16:00)
[2018-10-15] MEDS: traMADol TAB* 50 MG PO PRN (19:40)
[2018-10-15] MEDS ORDERED: traMADol TAB* 50 MG PO PRN (21:21)
[2018-10-16] MEDS: ZOSYN 3.375 GM Q8H per EXTENDED INFUSION IVPB SCH ×4 (00:09→08:20)
--- NOTE | 2018-10-16 00:28 | PN ---
Progress Note - Progress Note Date of Service: 10/16/18 Note: Surgery Progress: (late entry; patient seen ~1600) S: IR placed pigtail drain to remaining loc fluid collection Right infero- posterior chest. Well tolerated, but only aspirated ~ 10- 15cc (of an estimated volume of 150- 200 ml). Case discussed w/ Dr. Kirk (covering) who has also discussed w/ Dr. Cox. O:afeb Post-pigtail cxray reviewed personally (small, stable residual Right apical ptx) A: s/p Right chest tube placement for loc pleural effusion, and s/p one dose of fibrinolytic w/ overall favorable results, though with moderate size loc fluid collection persisting, now s/p IR pigtail drain placement w/ minimal output. P: ~ 40 ml of total of 50 ml syringe of Alteplase was instilled via pigtail catheter (the remaining 10 ml was not instilled 2/2 resistance and patient discomfort). Catheter will be kept closed x 2 hrs, then drain to gravity drainage bag. There had been no demonstrable drainage through or around the existing chest tube. Therefore, subsequent to the Alteplase instillation, the chest tube was removed and an occlusive dressing placed. Patient tolerated the procedures well. Case was also discussed w/ Dr. Elmore from Radiology.
[2018-10-16 14:06] VITALS: BP 112/69
--- NOTE | 2018-10-16 21:24 | DS ---
CC: Roc Mathews MD; Dustin Cox MD; Dom Cat MD; Nina Blackman MD * DISCHARGE SUMMARY: DATE OF ADMISSION: 10/08/18 DATE OF DISCHARGE: 10/16/18 ATTENDING PHYSICIAN: Dr. Flora Suero* (dictated by ANNEMARIE Farr). PRIMARY CARE PROVIDER: Roc Mathews MD CONSULTING SURGEON: Dustin Cox MD CONSULTING INFECTIOUS DISEASE SPECIALIST: Dom Cat MD CONSULTING DISTRICT ENGINEER: Nina Blackman MD PRIMARY DISCHARGE DIAGNOSIS: Pleural effusion, likely empyema due to oral nicole , chest tube placement, percutaneous drainage. SECONDARY DISCHARGE DIAGNOSES: 1. Borderline hypertension. 2. Positive tuberculosis skin test consistent with latent tuberculosis. STUDIES DONE WHILE IN THE HOSPITAL: Electrocardiogram from 10/08/18 shows normal sinus rhythm, early repolarization in V1 through V3, normal axis. No hypertrophy or enlargement. No other ST segment abnormalities. Rate of 84, QTc of 431. Chest x-ray from 10/08/18 read as right pleural effusion with right lower lung consolidation, recommend followup until resolution to exclude underlying pulmonary parenchymal pathology. Chest/thorax CTA from 10/08/18 read as no pulmonary arterial filling defect to suggest pulmonary embolism, right pleural effusion that appears partially loculated with compressive atelectasis of the right lower lobe. Chest ultrasound from 10/08/18 read as small to moderate anechoic pleural fluid visualized, suggestion of partial loculation, skin over the fluid marked for subsequent thoracentesis. Chest x-ray from 10/08/18 read as small right pleural effusion with right basilar atelectasis versus consolidation. No appreciable pneumothorax. Chest x-ray from 10/09/18 read as right basilar infiltrate and small right pleural effusion unchanged. Chest ultrasound from 10/09/18 read as sonographic findings consistent with small to moderate right lung base loculated pleural effusion. Chest x-ray from 10/09/18 read as interval placement of large-bore right-sided chest tube, very small right-sided pneumothorax. Chest x-ray from 10/10/18 read as no appreciable residual pneumothorax. Chest CT from 10/13/18 read as he has a right-sided chest tube in place, additional loculated pleural effusion was noted posteriorly in the middle lobe, loculated effusion measuring 7.1 x 3.9 cm. Right basilar atelectasis noted. Chest CT from 10/14/18 read as loculated pleural effusions noted in the right posterior chest, which has not changed position on prone position, no communication with pleural space, chest tube is noted. Chest x-ray from 10/15/18 read as interval placement of the small-bore chest tube with a pigtail loop located in the posterior lower right pleural space. Paracentesis ultrasound from 10/15/18 read as uncomplicated ultrasound-guided placement of 10-English pigtail drainage catheter and the posterior right pleural fluid collection as described. Chest x-ray from 10/15/18 read as interval removal of right-sided chest tube with suggested small apical pneumothorax and small pleural effusion, improved aeration in the right lung base. MEDICATIONS AT DISCHARGE: 1. Tylenol 650 mg p.o. q.4 hours as needed. 2. Augmentin 500 mg p.o. t.i.d. x63. 3. Tramadol 50 mg p.o. q.8 hours as needed. HOSPITAL COURSE: This is a brief summary of the patient's presentation. For more details, please see the history and physical from Jerzy Stanton NP, on . In brief, the patient is a 43-year-old male with past medical history significant for the above, who presented to the emergency department with chest pain, cough, and fatigue since the end of July. The patient after that visited [place] and continued to have right-sided chest pain, which he believed to be musculoskeletal. The patient was prescribed amoxicillin, which he took for a week, which does not help. The patient stated the pain was pleuritic. He has no history of tuberculosis and no known contacts with active tuberculosis patients. The patient has never had anything like before. The patient was found to have a large pleural effusion and was admitted to the hospital and started on IV antibiotics. The patient was seen in consultation by Dr. Nina Blackman of Pulmonology and Dr. Dom Cat of Infectious Disease, who recommended a chest tube. A thoracentesis was completed, which was consistent with inflammatory disease. The patient was started on Levaquin, which was switched to vancomycin and Zosyn after the patient had a fever with tachycardia and increased chest pain. The patient had another episode of this on 10/10/18 and was continued on vancomycin and Zosyn; however, the vancomycin was discontinued on 10/11/18 due to improvement. The patient had fibrinolytics instilled within his chest tube for 1 dose with a good increase in chest tube drainage. The patient had chest imaging as above indicating progressive improvement in his chest tube. The patient had a tuberculin skin test which was positive, but a QuantiFERON Gold was negative. The patient was deemed not to need treatment for latent TB at this time. Due to the improvement in his pleural effusion down to 1, unloculated pocket was taken for interventional radiology-guided drainage of his fluid pocket on 10/15/18, which was done without complication, but with incomplete drainage of his fluid pocket, the patient had fibrinolytics instilled again into his pigtail drain with a subsequent increase in his drainage. 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 The patient had his chest tube removed without difficulty. The patient was stable and amenable for discharge on 10/16/18 with a plan for 3 more weeks of oral antibiotics and close followup outpatient with Surgery, Pulmonology, Infectious Disease to ensure the continued improvement of his pleural effusion. PHYSICAL EXAMINATION ON DAY OF DISCHARGE: General: The patient is a 43-year- old male, who appears stated age and sitting comfortably in bed, in no acute distress. Vital Signs: At the time of evaluation, temperature 98.0, pulse rate 79, respiratory rate 18, oxygen saturation 96% on room air, blood pressure 111/ 69. HEENT: Head normocephalic, atraumatic. Sclerae anicteric. No conjunctival injection. Nasal mucosa moist. Oral mucosa moist. No pharyngeal erythema, discharge, or exudate. Neck: Supple, nontender. No lymphadenopathy. No carotid bruits auscultated. No JVD. Cardiac: Regular rate and rhythm. No clicks, murmurs, gallops, or rubs. Pulses are 2+ in bilateral dorsalis pedis, posterior tibialis, and radial areas. Respiratory: Diminished aeration of the right lobe. No other adventitious lung sounds. Pigtail drain in place without drainage. Former chest tube site benign. Abdomen: Soft, nontender, nondistended. Bowel sounds present and normoactive in all 4 quadrants. No hepatosplenomegaly. No abdominal bruits auscultated. No hepatojugular reflux. Genitourinary: No suprapubic or CVA tenderness. Skin : Clean, dry, intact. No rash except for areas of drain placement. Neuro: Cranial nerves II through XII are intact. No focal deficits. Alert and oriented x3. Psychiatric: Pleasant and cooperative. DISCHARGE PLAN: The patient will be discharged to home. The patient will need close followup with Surgery, Infectious Disease, and Pulmonology. The patient will follow up with Dr. Cox of Surgery in 4 to 7 days. Before this appointment, the patient should have repeat CT scan of his chest to document hopeful improvement in his pleural effusion. The status of the patient's pigtail drain will be assessed at that appointment. The patient will be continued on Augmentin 500 mg p.o. t.i.d. for 21 total days. The patient will follow up with Dr. Dom Cat in 1 to 2 weeks to document continued improvement in his pulmonary status. The patient should follow up with Dr. Nina Blackman of Pulmonology within 1 week as well. The patient should follow up with his primary care provider within 1 week for general medical management. The patient to have a regular unrestricted diet and engage in activity as tolerated. The patient should leave his pigtail drain dressing in place until he follows up with Surgery. The patient will be able to remove his occlusive chest tube dressing 24 hours after discharge and replace it with a non- occlusive dressing such as a Band-Aid. TIME SPENT: Approximately 1 hour was spent on the discharge of this patient, 30 minutes of which was spent [id number] with the patient obtaining history and physical and discussing treatment plan. ANNEMARIE FARR [id number]/[facility] #: [id number] JESSIE
== END 2018-10-16 15:26 | disposition home or self-care (01) | DRG 177 ==
LOC: ED 06:31 → MED 11:16 → INTOOBSV 10-09 12:00 → OBSVTOIN 10-09 12:00
PROVIDERS: ADMIT Internal Medicine; ATTEND Hospitalist
PROC: 0W9930Z Drainage of Right Pleural Cavity with Drainage Device, Percutaneous Approach (ICD-10-PCS; principal; 2018-10-09)
PROC: 0W993ZZ Drainage of Right Pleural Cavity, Percutaneous Approach (ICD-10-PCS; 2018-10-09)
PROC: 3E0L3GC Introduction of Other Therapeutic Substance into Pleural Cavity, Percutaneous Approach (ICD-10-PCS; 2018-10-13)
DX: J86.9 Pyothorax without fistula (principal); A41.9 Sepsis, unspecified organism; J15.8 Pneumonia due to other specified bacteria; J90 Pleural effusion, not elsewhere classified; J98.11 Atelectasis; I10 Essential (primary) hypertension; R76.11 Nonspecific reaction to tuberculin skin test without active tuberculosis; Z82.3 Family history of stroke
CPT/HCPCS: 32555; 36415; 71045; 71046; 71250; 71260; 71275; 76604; 80048; 80053; 81003; 81015; 82042; 82150; 82945; 83605; 83615; 83735; 83880; 83986; 84157; 84311; 84443; 84484; 85025; 85379; 85610; 85730; 86140; 86480; 86703; 87040; 87070; 87076; 87086; 87116; 87205; 87206; 87640; 87641; 87899; 88112; 89051; 93005; 94640; 99284; A9270-GY; J2270; J2543; J2997; J3010; J3370; J7639; Q9967